=== PATIENT | male | born 1945 | race Caucasian/White ===

== ENCOUNTER 2019-12-11 11:18 | Outpatient (CLI) | payer MEDICARE, SELFPAY ==
--- NOTE | ~2019-12-11 | XR_ITS ---
EXAMINATION: XR hip LT min 2V DATE: 12/11/2019 11:51 INDICATION: Left hip pain. TECHNIQUE: 3 views of left hip were obtained. COMPARISON: None. FINDINGS: Bone alignment is normal. No fracture. There is mild left hip osteoarthritis. IMPRESSION: 1. Mild left hip osteoarthritis. Reviewed, dictated and finalized at location A.
--- NOTE | ~2019-12-11 | XR_ITS ---
EXAMINATION: XR lumbar spine 2-3V DATE: 12/11/2019 11:51 INDICATION: Low back pain TECHNIQUE: Anteroposterior and lateral views of the lumbar spine, and cone-down lateral view of the l umbosacral junction were obtained. COMPARISON: None. FINDINGS: There is no fracture. The vertebral body heights and alignment are normal. There is moderat e loss of intervertebral disc space height at L5-S1 and mild loss of disc space height throughout the remainder of the lumbar spine. Degenerative osteophytes project from the anterior endplates of multi ple vertebral bodies. Mild facet osteoarthritis is noted in the lower lumbar spine. The bowel gas pat tern is normal. IMPRESSION: 1. Mild lumbar spondylosis without acute findings. Reviewed, dictated and finalized at location B.
== END 2019-12-11 11:19 | disposition home or self-care (01) ==
LOC: CHSIMG 11:24
PROVIDERS: PCP Internal Medicine; Visit Provider Internal Medicine
DX: M54.5 Low back pain (principal); M25.552 Pain in left hip
CPT/HCPCS: 72100; 73502

== ENCOUNTER 2019-12-31 14:31 | Outpatient (RCR) | payer MEDICARE, SELFPAY ==
--- NOTE | 2019-12-31 14:23 | PTOPEVAL ---
Thank you for referring Armani Brar to [facility].? The patient is scheduled to be seen for therapy? ____x/week for ___ weeks. Please review, sign, date and return this plan of care ALANNA. I agree with and certify that the following plan of care is medically necessary. Referring Physician Date Admitting Provider: Attending Provider: Taco Christian MD Referring Provider: *PT Outpatient Evaluation Start: 12/31/19 13:09 Freq: Status: Active Protocol: Document 12/31/19 13:09 JI (Rec: 12/31/19 13:53 JI [id number]) Therapy Assessment Status Assessment Status Assessment Status Evaluation Evaluation Information Problem Diagnosis low back/hip pain Onset 08/13/19 Additional Evaluation Detail Oswestry=14% disability Subjective Information Pt. reports that he developed Query Text:As Reported By Patient/ left sided low back pain Family around August. He states that pain is not intense, but notes alot of stiffness. He has had xray which revealed degenrative arthritis. He states that bending over for long periods will increase his pain. He notes difficulty with household activities, such as pulling weeds. he reports that his goal is to reduce his pain. Prior Level of Function Activity Level (Last 3 Months) Occupation retired Hand Dominance Right Activity of Daily Living Ability Independent Indoor/Home Mobility Independent Community Mobility Independent Stairs Ability Independent Functional Cognition (Planning, Shopping Independent , Taking Medications) Cooking Yes Cleaning Yes Laundry Yes Shopping Yes Driving Yes Pain Assessment Pain Scale Pain Scale Used Numeric (1 - 10) Self Report Pain Assessment Left Lower Back Reported Pain Level 2 Pain Description Aching Lowest Pain Intensity 1 Greatest Pain Intensity 5 Pain Score Pain Score 2: Self Report Lower Extremity Muscle Strength Testing General Lower Extremity Strength Gross Lower Extremity Strength bilateral hip flexion 5/5, right hip abduction 4/5, left hip abduction 3+/5, right hip extension 4/5, left hip
--- NOTE | 2020-01-28 14:08 | PTOPEVAL ---
Thank you for referring Armani Brar to [facility].? The patient is scheduled to be seen for therapy? __1__x/week for _3__ weeks. Please review, sign, date and return this plan of care ALANNA. I agree with and certify that the following plan of care is medically necessary. Referring Physician Date Admitting Provider: Attending Provider: Taco Christian MD Referring Provider: *PT Outpatient Evaluation Start: 12/31/19 13:09 Freq: Status: Active Protocol: Document 01/28/20 13:24 JI (Rec: 01/28/20 14:07 JI [id number]) Therapy Assessment Status Assessment Status Assessment Status Discharge Evaluation Information Problem Subjective Information Pt. reports little change in Query Text:As Reported By Patient/ his pain levels. He states Family that he notes improvement after exercise, but pain will return once he participates in any vigorous activities such as golf. He reports that his exercise levels remain decreased at home and states that he still wants to return to the gym. Pt. reports he would like to continue to address strength Pain Assessment Pain Scale Pain Scale Used Numeric (1 - 10) Self Report Pain Assessment Left Lower Back Reported Pain Level 2 Greatest Pain Intensity 4 Pain Aggravating Factors Exercise/Activity,Weight Bearing/Standing Pain Score Pain Score 2: Self Report Lower Extremity Muscle Strength Testing General Lower Extremity Strength Gross Lower Extremity Strength right hip abducdtion 4/5 left hip abduction 4-/5 right hip extension 4+/5 left hip extension 4/5 Muscle Length Testing Muscle Length Testing Piriformis w/Hip Flexion >90 Degrees (R) Mild Tightness,(L) Moderate Tightness Left Hamstring Length 18 Query Text:(90 - 90 Position) Right Hamstring Length 15 Query Text:(90 - 90 Position) Palpation Assessment Palpation Palpation Continue to note tenderness to palpation in the area of the left lumbar paraspinals General Exercise General Exercises Exercise Description -sit ups x 30 Query Text:Record Sets, Reps, -oblique sit ups x 10 Resistance, and Position -dying bug x 2 minutes with 5 second holds -bridge x 2 minutes with 10
== END 2020-02-12 10:30 | disposition home or self-care (01) ==
LOC: CHSPT 14:31
PROVIDERS: PCP Internal Medicine; Visit Provider Internal Medicine
DX: M54.5 Low back pain (principal); M25.552 Pain in left hip
CPT/HCPCS: 97014; 97035; 97110; 97140; 97161; 97542; G0283

== ENCOUNTER 2020-04-09 12:37 | Outpatient (CLI) | payer MEDICARE, SELFPAY ==
[2020-04-09 13:35] LABS: SARS-CoV-2 Ag Positive (Negative)
== END 2020-04-09 12:38 | disposition home or self-care (01) ==
LOC: CHSLAB 12:39
PROVIDERS: PCP Internal Medicine; Visit Provider Internal Medicine
DX: U07.1 COVID-19 (principal)
CPT/HCPCS: 87426

== ENCOUNTER 2020-04-20 10:46 | Outpatient (CLI) | payer MEDICARE, SELFPAY ==
--- NOTE | ~2020-04-20 | XR_ITS ---
EXAMINATION: XR chest 2V DATE: 04/20/2020 11:06 INDICATION: Shortness of breath and cough. COVID-19 positive. TECHNIQUE: Frontal and lateral views of the chest were obtained on 3 radiographs. COMPARISON: Chest 2 views 07/03/2018 FINDINGS: There are airspace opacities in right mid and lower lung zones. There is mild scarring at t he lung apices. No pleural effusion or pneumothorax. The heart size is normal. IMPRESSION: 1. Airspace opacities in right mid and lower lung zones, consistent with pneumonia. Reviewed, dictated and finalized at location B. RER WHARF IMPRESSION: 1. Airspace opacities in right mid and lower lung zones, consistent with pneumo lennox.
--- NOTE | ~2020-04-20 | CT_ITS ---
EXAMINATION: CTA chest PE protocol DATE: 04/20/2020 12:29 INDICATION: Dyspnea. COVID-19 pneumonia. TECHNIQUE: Computed tomography angiography (CTA) of the chest was performed with 100 mL Omnipaque-350 intravenous contrast timed to evaluate the pulmonary arteries. Coronal maximum intensity projection 3D-reconstructions were created by the technologist. Automated exposure control and iterative reconst ruction technique were employed. The dose-length product was 382.16 mGy-cm. COMPARISON: None. FINDINGS: There are patchy groundglass opacities in all lobes with a peripheral predominance. There a re airspace opacities with volume loss in the peripheral lower lobes. There is mild scarring at the l rj apices. No pleural effusion. The heart size is normal. There are coronary artery calcifications. No pericardial effusion. There are acute pulmonary emboli in the lower lobes and left upper lobe. The re are 9 mm cyst in left kidney. There are bridging endplate osteophytes at multiple levels in the sp ine, consistent with diffuse idiopathic skeletal hyperostosis (DISH). IMPRESSION: 1. Bilateral acute pulmonary emboli. 2. Diffuse lung disease, consistent with COVID-19 pneumonia. Reviewed, dictated and finalized at location B. ITY PROSPECTING OBSERVER
[2020-04-20 11:05] LABS: Basophils Absolute Auto 0.01 K/mm3 (0.00-0.10); Basophils Percent Auto 0.1 % (0.0-1.0); Eosinophils Absolute Auto 0.07 K/mm3 (0.02-0.50); Eosinophils Percent Auto 0.9 % (1.0-6.0); Hematocrit 40.8 % (37.0-46.0); Hemoglobin 13.6 g/dL (12.4-15.3); Immature Granulocyte Absolute 0.03 K/mm3 (0.00-0.00); Immature Granulocyte Percent A 0.4 % (0.0-0.0); Lymphocytes Absolute Auto 1.58 K/mm3 (1.10-4.50); Lymphocytes Percent Auto 19.6 % (18.0-42.0); Mean Corpuscular HGB Conc 33.3 g/dL (32.0-36.0); Mean Corpuscular Hemoglobin 30.5 pg (27.0-31.0); Mean Corpuscular Volume 91.5 fL (78.0-102.0); Mean Platelet Volume 9.5 fl (8.7-11.0); Monocytes Absolute Auto 0.94 K/mm3 (0.10-0.90); Monocytes Percent Auto 11.7 % (2.0-11.0); Neutrophils Absolute Auto 5.4 K/mm3 (1.7-7.2); Neutrophils Percent Auto 67.3 % (50.0-70.0); Platelet Count Result 219 K/mm3 (150-420); Red Blood Count 4.46 M/mm3 (4.70-6.10); White Blood Count 8.1 K/mm3 (4.8-10.8)
[2020-04-20 11:24] LABS: D Dimer 2.47 mg/L (0.19-0.50)
[2020-04-20 12:02] LABS: Estimated Glomerular Filt Rate > 60
== END 2020-04-20 10:47 | disposition home or self-care (01) ==
PROVIDERS: PCP Internal Medicine; Visit Provider Internal Medicine
DX: R06.00 Dyspnea, unspecified (principal); R79.1 Abnormal coagulation profile; U07.1 COVID-19
CPT/HCPCS: 36415; 71046; 71275; 85025; 85380; Q9965; Q9967

== ENCOUNTER 2020-07-23 10:03 | Outpatient (CLI) | payer MEDICARE, SELFPAY ==
--- NOTE | ~2020-07-23 | CT_ITS ---
EXAMINATION: CTA chest PE protocol DATE: 07/23/2020 11:13 INDICATION: Pulmonary embolism TECHNIQUE: Computed tomography angiography (CTA) of the chest was performed with 100 mL Omnipaque-350 intravenous contrast timed to evaluate the pulmonary arteries. Coronal maximum intensity projection 3D-reconstructions were created by the technologist. The dose-length product (DLP) was 476.09 mGy-cm. Automated exposure control and iterative reconstruction technique were employed. COMPARISON: 04/20/2020 FINDINGS: The pulmonary arteries are well-opacified. The previously described pulmonary emboli in the lower lobes have significantly decreased in size. A small amount of residual clot is seen which demo nstrates an eccentric configuration, consistent with chronic embolism. The previously described left upper lobe pulmonary embolus is no longer seen. There are no acute pulmonary emboli. The previously d escribed patchy groundglass opacities have nearly completely resolved. There is a focal area of atele ctasis in the right upper lobe. No pleural effusion or pneumothorax is identified. No pathologically enlarged thoracic lymph nodes are identified. The heart size is normal. There are bridging osteophyte s at multiple levels in the spine, consistent with diffuse idiopathic skeletal hyperostosis (DISH). A 9 mm cyst is again noted in the left kidney upper pole. IMPRESSION: 1. Resolving pulmonary emboli in the lower lobes, now with a chronic configuration. No acute pulmonar y embolism identified. 2. Near complete resolution of previously described groundglass opacities, consistent with resolving COVID 19 pneumonia. Reviewed, dictated and finalized at location A. CTOR BANKING IMPRESSION: 1. Resolving pulmonary emboli in the lower lobes, now with a chronic configurat ion. No acute pulmonary embolism identified. 2. Near complete resolution of previously described groundglass opacities, cons istent with resolving COVID 19 pneumonia.
[2020-07-23 10:52] LABS: Estimated Glomerular Filt Rate > 60
== END 2020-07-23 10:04 | disposition home or self-care (01) ==
LOC: CHSIMG 10:05
PROVIDERS: PCP Internal Medicine; Visit Provider Internal Medicine
DX: I26.99 Other pulmonary embolism without acute cor pulmonale (principal); Z51.89 Encounter for other specified aftercare
CPT/HCPCS: 71275; Q9967

== ENCOUNTER 2020-10-08 13:06 | Outpatient (CLI) | payer MEDICARE, SELFPAY ==
[2020-10-08 13:57] LABS: Basophils Absolute Auto 0.02 K/mm3 (0.00-0.10); Basophils Percent Auto 0.3 % (0.0-1.0); Eosinophils Absolute Auto 0.15 K/mm3 (0.02-0.50); Eosinophils Percent Auto 2.5 % (1.0-6.0); Hematocrit 40.5 % (37.0-46.0); Hemoglobin 13.7 g/dL (12.4-15.3); Immature Granulocyte Absolute 0.01 K/mm3 (0.00-0.00); Immature Granulocyte Percent A 0.2 % (0.0-0.0); Lymphocytes Absolute Auto 2.32 K/mm3 (1.10-4.50); Lymphocytes Percent Auto 38.3 % (18.0-42.0); Mean Corpuscular HGB Conc 33.8 g/dL (32.0-36.0); Mean Corpuscular Hemoglobin 30.1 pg (27.0-31.0); Mean Platelet Volume 10.1 fl (8.7-11.0); Monocytes Absolute Auto 0.68 K/mm3 (0.10-0.90); Monocytes Percent Auto 11.2 % (2.0-11.0); Neutrophils Absolute Auto 2.9 K/mm3 (1.7-7.2); Neutrophils Percent Auto 47.5 % (50.0-70.0); Platelet Count Result 185 K/mm3 (150-420); Red Blood Count 4.55 M/mm3 (4.70-6.10); Red Cell Distribution Width 12.7 % (11.6-14.4); White Blood Count 6.1 K/mm3 (4.8-10.8)
[2020-10-08 14:05] LABS: Hemoglobin A1C 5.6 % (<5.7)
[2020-10-08 15:02] LABS: Alanine Aminotransferase 53 U/L (16-63); Albumin Level 3.6 g/dL (3.4-5.0); Alkaline Phosphatase 94 U/L (46-116); Anion Gap 8 mmol/L (8-16); Aspartate Amino Transferase 46 U/L (15-37); Bilirubin,Total 0.4 mg/dL (0.00-1.00); Blood Urea Nitrogen 11 mg/dL (7-18); Calcium 8.9 mg/dL (8.5-10.1); Carbon Dioxide 27 mmol/L (21-32); Chloride 106 mmol/L (98-108); Cholesterol 177 mg/dL (0-200); Creatine Kinase 161 U/L (39-308); Estimated Glomerular Filt Rate > 60; Glucose 123 mg/dL (70-99); HDL Direct 50 mg/dL (40-60); LDL Cholesterol Calculated 106 mg/dL (<130); Osmolality Calculated 292 mOsm/kg (285-295); Potassium 4.5 mmol/L (3.5-5.1); Sodium 141 mmol/L (136-145); Total Protein 6.7 g/dL (6.4-8.2); Triglycerides 103 mg/dL (0-150)
[2020-10-08 17:28] LABS: Add Urine Microscopic? NO; Appearance Urine Clear (Clear); Bilirubin Urine Negative (Negative); Blood Urine Negative (Negative); Color Urine Yellow (Yellow); Glucose Urine UA Negative (Negative); Ketones Urine Negative (Negative); Leukocyte Esterase Ur Negative (Negative); Nitrate Urine Negative (Negative); Protein Urine Negative (Negative)
== END 2020-10-08 13:07 | disposition home or self-care (01) ==
LOC: CHSLAB 13:07
PROVIDERS: PCP Internal Medicine; Visit Provider Internal Medicine
DX: E78.2 Mixed hyperlipidemia (principal); I10 Essential (primary) hypertension; E11.9 Type 2 diabetes mellitus without complications; I26.94 Multiple subsegmental thrombotic pulmonary emboli without acute cor pulmonale
CPT/HCPCS: 36415; 80053; 80061; 81003; 82550; 83036; 85025

== ENCOUNTER 2020-10-22 13:28 | Outpatient (CLI) | payer MEDICARE, SELFPAY ==
--- NOTE | ~2020-10-22 | US_ITS ---
US breast RT limited DATE: 10/22/2020 13:52 INDICATION: Painful right breast nodule TECHNIQUE: Real-time imaging of the right breast soft tissues COMPARISON: None FINDINGS: No suspicious mass or shadowing, cyst or other significant sonographic finding is detected IMPRESSION: BI-RADS Category 1: Negative Reviewed, dictated and finalized at Location A. Reviewed, dictated and finalized at location A.
== END 2020-10-22 13:29 | disposition home or self-care (01) ==
LOC: CHSIMG 13:31
PROVIDERS: PCP Internal Medicine; Visit Provider Internal Medicine
DX: N63.10 Unspecified lump in the right breast, unspecified quadrant (principal); N64.4 Mastodynia
CPT/HCPCS: 76642

== ENCOUNTER 2020-11-19 11:17 | Outpatient (CLI) | payer MEDICARE, SELFPAY ==
--- NOTE | 2020-12-13 16:23 | WPDHOLTEREM ---
Holter/Event Monitor Holter/Event Monitor Date of procedure: 11/19/20 Holter/Event Procedure: Event Monitor Indications: Stroke Conclusion: 1. 20 days event monitor between 11/19/20-12/10/20. There are 26 available transmissions for analysis. 2. Predominant rhythm is sinus rhythm. HR range 50-174 bpm; average HR 83 bpm. 3. There are occasional premature supraventricular complexes with total burden of 1%. There is 1 episode of atrial tachycardia at 174 bpm lasting 8 beats on 11/23/20 at 11:59. 4. There are occasional premature ventricular complexes with total burden of 2%. No ventricular tachycardia. 5. No significant pauses greater than 2 seconds. 6. Patient reports 3 episodes of symptoms of symptoms other than listed which demonstrate sinus rhythm, HR range 65-86 bpm with one episode having a PVC and PAC.
== END 2020-11-19 11:18 | disposition home or self-care (01) ==
LOC: CHSCARD 11:20
PROVIDERS: PCP Internal Medicine
DX: I63.9 Cerebral infarction, unspecified (principal)
CPT/HCPCS: 99199

== ENCOUNTER 2020-11-22 09:58 | Outpatient (RCR) | payer MEDICARE, SELFPAY ==
--- NOTE | 2020-11-22 12:01 | OTOPEVAL ---
Thank you for referring Armani Brar to [facility].? The patient is scheduled to be seen for therapy? ____x/week for ___ weeks. Please review, sign, date and return this plan of care ALANNA. I agree with and certify that the following plan of care is medically necessary. Referring Physician Date Admitting Provider: Attending Provider: panda finnegan Referring Provider: *OT Outpatient Evaluation Start: 11/22/20 07:28 Freq: Status: Active Protocol: Document 11/22/20 10:00 [facility] (Rec: 11/22/20 10:58 [facility] [id number]) Therapy Assessment Status Assessment Status Assessment Status Evaluation Outpatient Past Medical History Neurological History Hx Cerebrovascular Accident (CVA) Yes: 11/15/20 Cardiovascular History Hx Coronary Stent Yes: 2014 Evaluation Information Problem Diagnosis R UE weakness, decreased coordination Onset 11/15/20 Cause CVA Subjective Information BP taken at beginning of Query Text:As Reported By Patient/ session: 135/72, heart rate: Family 84 , BP mid way through session: 135/73, heart rate: 90 Patient reports that he has a heart monitor on that he has had since Sunday. Patient arrives to OT evaluation and reports the following: Patient reports that he had a mini- stroke (TIA) on 11/15/20. He states that he has been edgy and anxious about another one occuring and is feeling weak. He notes that R UE weakness continues to improve however initially his R arm was floppy. Patient states that initially his vision did not seem to be right but states that today its seem normal. Washing his hair, shaving, and combing his hair have been more difficult as his R hand just doesn't work like it used to. Prior Level of Function Activity Level (Last 3 Months) Occupation retired Hand Dominance Ambidextrous Activity of Daily Living Ability Independent Indoor/Home Mobility Independent Community Mobility Independent Stairs Ability Independent
--- NOTE | 2020-12-21 16:55 | PCOTNOTE ---
OT contact patient and left message to schedule follow up OT apt however patient has not returned call. Patient seen for OT evaluation only. MS
== END 2020-11-22 11:00 | disposition home or self-care (01) ==
LOC: CHSOT 09:58
PROVIDERS: PCP Internal Medicine
DX: I69.398 Other sequelae of cerebral infarction (principal)
CPT/HCPCS: 97110; 97165; 97530

== ENCOUNTER 2021-02-01 09:11 | Outpatient (CLI) | payer MEDICARE, SELFPAY ==
--- NOTE | ~2021-02-01 | CT_ITS ---
EXAMINATION: CTA chest PE protocol EXAM DATE: 02/01/2021 09:56 INDICATION: Pulmonary Embolism follow-up. TECHNIQUE: Spiral CTA of the chest (pulmonary arteries) was performed with 100 cc Omnipaque 350 intr avenous contrast injection. Images were acquired during the pulmonary arterial phase. Coronal maxi mum intensity projection 3D-reconstructions were created by the technologist on dedicated workstation . Axial, coronal and sagittal reformatted images were reviewed. The dose-length product (DLP) for t his examination was 381.92 mGy-cm. The exposure was tailored according to patient size (auto mA exp osure control), and iterative reconstruction (ASIR) was used as additional dose reduction technique. Comparison is made to prior examination from 07/23/2020. FINDINGS: Pulmonary arteries are well opacified and without intraluminal filling defects, resolution of previously seen small residual pulmonary emboli. No thoracic aortic dissection. The lungs are c lear. There are no pleural or pericardial effusions. Tracheobronchial tree is patent. There is no mediastinal, hilar or axillary lymphadenopathy. There is no pneumothorax. Mild cardiomegaly. No evidence of coronary arterial calcification. Upper abdomen is unremarkable. There is thoracic s pondylosis without osteoblastic or osteolytic lesions identified. IMPRESSION: 1. Resolution of previously seen pulmonary emboli. 2. Mild cardiomegaly. Reviewed, dictated and finalized at location B.
[2021-02-01 09:38] LABS: Estimated Glomerular Filt Rate > 60
== END 2021-02-01 09:12 | disposition home or self-care (01) ==
PROVIDERS: PCP Internal Medicine; Visit Provider Internal Medicine
DX: I26.99 Other pulmonary embolism without acute cor pulmonale (principal); Z51.89 Encounter for other specified aftercare; R91.1 Solitary pulmonary nodule
CPT/HCPCS: 71275; Q9967

== ENCOUNTER 2021-06-09 10:06 | Observation (INO) | payer MEDICARE, SELFPAY ==
--- NOTE | ~2021-06-09 | XR_ITS ---
EXAMINATION: XR chest 1V portable 06/09/2021 11:16 INDICATION: Chest pain PROCEDURE: AP portable chest COMPARISON: Comparison to multiple prior studies sequentially, with oldest reviewed study dated 12/23. FINDINGS: The lungs are clear. The cardiomediastinal silhouette is within normal limits. There are no pleural effusions. There is no pneumothorax suspected. IMPRESSION: 1: NO ACUTE CARDIOPULMONARY DISEASE. Reviewed, dictated and finalized at location B. RACTOR FIELD HAULING
--- NOTE | ~2021-06-09 | CT_ITS ---
EXAMINATION: CT abdomen pelvis wo con DATE: 06/09/2021 12:53 INDICATION: Left upper quadrant abdominal pain. TECHNIQUE: Computed tomography (CT) of the abdomen and pelvis was performed without intravenous contr ast. Automated exposure control and iterative reconstruction technique were employed. The dose-length product was 756.90 mGy-cm. COMPARISON: CT abdomen and pelvis 02/22/2009, chest CT 02/01/21 FINDINGS: The visualized portions of the lung bases demonstrate peripheral reticular and mild groundg lass opacities with improvement from 02/01/2021, consistent with atelectasis versus chronic lung disea se. The heart size is normal. No pericardial effusion. The liver, gallbladder, spleen, pancreas, adre nal glands, and kidneys are normal. There is no urolithiasis. There is a moderate volume of stool in the colon with distention of the rectum. The appendix is not visualized. There is a left inguinal her lennox containing fat. There are no pathologically enlarged lymph nodes. There is no free intraperitonea l fluid. There is an umbilical hernia containing fat. There is severe lower lumbar spondylosis. IMPRESSION: 1. Moderate volume of stool in the colon with distention of the rectum. 2. Umbilical hernia and left internal hernia containing fat. Reviewed, dictated and finalized at location A. NCE ADVISOR
[2021-06-09 10:06] VITALS: BP 166/87; PULSE 93; RESP 18; TEMP 36.7; O2SAT 99
--- NOTE | 2021-06-09 10:25 | ECG_ITS ---
Measurements Intervals [place] Rate: 92 P: 68 UT: 180 QRS: 29 QRSD: 105 T: 73 QT: 379 QTc: 470 Interpretive Statements SINUS RHYTHM ATRIAL AND VENTRICULAR PREMATURE COMPLEXES INCOMPLETE RIGHT BUNDLE BRANCH BLOCK CANNOT RULE OUT SEPTAL INFARCT, AGE INDETERMINATE BASELINE WANDER- V1-V3 ABNORMAL ECG Electronically Signed On 06-09-2021 11:08:09 TAPPER HELPER by Carlos Iqbal D.O.
[2021-06-09] MEDS: NITROGLYCERIN SL 0.4 MG TABLET SUBLINGUAL (10:30)
--- NOTE | 2021-06-09 10:34 | ED.CHESTPAIN ---
HPI - Chest Pain General Chief Complaint: Chest Pain Stated Complaint: HEART ISSUES Time Seen by Provider: 06/09/21 10:34 Source: patient and family Mode of arrival: ambulatory Limitations: no limitations History of Present Illness HPI narrative: This is a 76-year-old gentleman with a history of coronary artery disease with 1 stent placed in 2014 with a history of TIA is currently on Plavix and patient had an episode of chest pressure with epigastric discomfort that started on Sunday after he was chopping wood, and subsequently today earlier this morning while using his rhit patient had some discomfort in his chest, there is no diaphoresis no shortness of breath no nausea vomiting. Otherwise there is no fever chills, no abdominal pain no flank pain no dysuria. Patient did take a dose of aspirin prior to arrival along with a dose of nitroglycerin, his pain level in his chest he described about 9/10 and with the initial nitro it reduced to 7/10 and patient received dose of sublingual nitroglycerin while in the ER and his pain level is down to 2/10. MD complaint: chest pain and chest heaviness Pertinent past history: coronary artery disease Onset (ago): day(s) Timing of current episode: episodic Prior episodes: Yes Onset: during rest and during exertion Pain location: substernal and epigastric Pain radiation: none Severity: moderate Related Data Home Medications Medication Instructions Recorded Confirmed alprazolam 1 mg PO HS 06/09/21 06/09/21 clopidogrel 75 mg PO DAILY 06/09/21 06/09/21 evolocumab [Repatha SureClick] 140 mg SUBCUT DAILY 06/09/21 06/09/21 mirtazapine 15 mg PO DAILY 06/09/21 06/09/21 pantoprazole 40 mg PO DAILY 06/09/21 06/09/21 sucralfate 1 g PO DAILY 06/09/21 06/09/21 temazepam 15 mg PO DAILY 06/09/21 06/09/21 terbinafine HCl 250 mg PO DAILY 06/09/21 06/09/21 Review of Systems Review of Systems: All systems reviewed & are unremarkable except as noted in HPI and below PMFSH Past Medical History Medical History CAD (coronary artery disease) TIA (transient ischemic attack) Exam Const: General: cooperative, healthy appearing, comfortable, no acute distress, well developed, alert, awake and Physically active HENMT: Head: normal to inspection Ears: hearing grossly normal bilaterally General nose exam: Normal external nose present Face and sinus: normal facial exam Mouth: Yes Normal oral and palatal mucosa present Eyes: General: appearance normal, both eyes and all related structures EOM: EOMs intact bilaterally Neck: Neck: normal visual inspection, full ROM, no lymphadenopathy and no meningeal signs Chest: Chest palpation & inspection: normal inspection of the chest and normal palpation of entire chest wall Resp: Effort & Inspection: normal respiratory effort and able to speak in complete sentences Auscultation: clear to auscultation bilaterally Cardio: Jugular venous distension: no JVD Palpation: normal PMI Rate: regular rate Rhythm: regular rhythm GI: Inspection: normal to inspection Auscultation: normal bowel sounds Other: epigastric tenderness with palpation : General: Yes no CVA tenderness Back/Spine/Pelvis: Back: no CVA tenderness Skin: General skin exam: normal color and no rashes or lesions noted Neuro: General: oriented to person, oriented to place, oriented to time, patient oriented x3, gait normal, tone normal and moves all extremities Extrem: General: normal to inspection, full ROM and capillary refill normal Psych: Appearance: grossly normal and well kempt Mental Status: mental status grossly normal Course Course Emergency Course: patient having chest pressure after using a rhit, has a history of CAD patient labs were reviewed with patient and his daughter and troponins were mildly elevated at 65, patient was given nitroglycerin sublingual and pain level improved down to 2/10 initially from a 11/20. Ian
[2021-06-09 10:35] VITALS: BP 127/67; PULSE 84
[2021-06-09 10:44] LABS: Basophils Absolute Auto 0.03 K/mm3 (0.00-0.10); Basophils Percent Auto 0.5 % (0.0-1.0); Eosinophils Absolute Auto 0.34 K/mm3 (0.02-0.50); Eosinophils Percent Auto 5.9 % (1.0-6.0); Hematocrit 39.2 % (37.0-46.0); Hemoglobin 13.4 g/dL (12.4-15.3); Immature Granulocyte Absolute 0.02 K/mm3 (0.00-0.00); Immature Granulocyte Percent A 0.3 % (0.0-0.0); Lymphocytes Absolute Auto 2.02 K/mm3 (1.10-4.50); Lymphocytes Percent Auto 34.9 % (18.0-42.0); Mean Corpuscular HGB Conc 34.2 g/dL (32.0-36.0); Mean Corpuscular Volume 90.7 fL (78.0-102.0); Mean Platelet Volume 9.4 fl (8.7-11.0); Monocytes Absolute Auto 0.81 K/mm3 (0.10-0.90); Neutrophils Absolute Auto 2.6 K/mm3 (1.7-7.2); Neutrophils Percent Auto 44.4 % (50.0-70.0); Platelet Count Result 171 K/mm3 (150-420); Red Blood Count 4.32 M/mm3 (4.70-6.10); White Blood Count 5.8 K/mm3 (4.8-10.8)
[2021-06-09 10:59] LABS: D Dimer 0.22 mg/L (0.19-0.50); Partial Thromboplastin Time 24.8 SEC (23.90-30.70); Prothrombin Time 10.9 Seconds (9.50-12.10)
[2021-06-09 11:05] LABS: Alanine Aminotransferase 31 U/L (16-63); Albumin Level 3.3 g/dL (3.4-5.0); Alkaline Phosphatase 80 U/L (46-116); Anion Gap 8 mmol/L (8-16); Aspartate Amino Transferase 20 U/L (15-37); Bilirubin,Total 0.3 mg/dL (0.00-1.00); Blood Urea Nitrogen 14 mg/dL (7-18); Calcium 8.7 mg/dL (8.5-10.1); Carbon Dioxide 26 mmol/L (21-32); Chloride 106 mmol/L (98-108); Estimated Glomerular Filt Rate > 60; Glucose 127 mg/dL (70-99); Lipase 99 U/L (73-393); NT Pro B Type Natriuretic Pept 106 pg/mL (0-450); Osmolality Calculated 292 mOsm/kg (285-295); Potassium 3.5 mmol/L (3.5-5.1); Sodium 140 mmol/L (136-145); Total Protein 6.7 g/dL (6.4-8.2)
[2021-06-09 11:08] LABS: Troponin I 65.4 ng/L (0.00-60.4)
[2021-06-09 11:19] LABS: SARS-CoV-2 RNA PCR Negative (Negative)
--- NOTE | 2021-06-09 11:19 | PC.NURSE ---
call to care coordination. spoke with cosmo juarez regarding admission
[2021-06-09 11:29] VITALS: BP 130/75; PULSE 80; RESP 20; TEMP 36.2; O2SAT 97
[2021-06-09 12:30] VITALS: BP 138/80; PULSE 82; RESP 20; TEMP 36.4; O2SAT 96
--- NOTE | 2021-06-09 12:31 | ADMGEN ---
This patient, Armani Brar, was admitted to 2nd Floor Room 226-2. patient her with c/o of chest pains. tele applied. sr on monitor. Patient/family oriented to hospital policies and general routines including ID bracelet, bed and alarms, visiting hours, pain management, procedures, bathroom and other care routines, personal items, smoking policy, room service/diet, and visiting hours. Information on how to activate the Rapid Response Team has been discussed. Patient/Family are encouraged to report perceived risks to care and to ask questions if they do not understand what they are told or what they should do. Pt denies sob but left arm there is achy feeling off and on. rates it maybe 05/15
[2021-06-09 12:40] VITALS: BMI 28.0
[2021-06-09 14:00] VITALS: BP 154/74; PULSE 84; RESP 20; TEMP 36.6; O2SAT 97
[2021-06-09 15:21] LABS: Troponin I 124.9 ng/L (0.00-60.4)
--- NOTE | 2021-06-09 16:19 | PC.NURSE ---
up in chair. watching tv. still cont to deny cp. trop level increased. erp aware and placing calls at this time to area hospitals for cardiac beds.
[2021-06-09] MEDS: SUCRALFATE 1 GM TABLET PO ×2 (16:36→20:19)
[2021-06-09] MEDS: ENOXAPARIN 100 MG/ML SYRINGE 86 MG SUB-Q (16:36)
[2021-06-09] MEDS: polyethylene glycoL 3350 17 GM POWD.PACK PO (16:36)
--- NOTE | 2021-06-09 16:36 | PC.NURSE ---
Daughter, Jovita Brar, updated on status and that attempts are being made to transfer patient.
--- NOTE | 2021-06-09 17:52 | PM.EVENT ---
Event Note Event Note Event Note: patient was admitted to the floor with some chest pain and rule out protocol his initial troponin was 65 patient currently chest pain free but his subsequent troponin bumped up to 128, talked to access line at [facility] in [place] talk to Cardiology and hospitalist which accepted for transfer. The patient currently is stable he is chest pain-free at 0/10 patient received a dose of Lovenox, aspirin, patient is currently on as aspirin and Plavix.
[2021-06-09 19:00] LABS: Troponin I 131.1 ng/L (0.00-60.4)
--- NOTE | 2021-06-09 19:01 | PC.NURSE ---
updated on current Troponin level of 131.1. No new orders.
[2021-06-09 20:00] VITALS: PULSE 73
--- NOTE | 2021-06-09 20:07 | PC.NURSE ---
[facility] did not have rig available for transfer. [facility] notified.
--- NOTE | 2021-06-09 20:10 | PC.NURSE ---
Patient's daughert, Jovita Brar, notified of transfer and room number 510 at [place].
[2021-06-09] MEDS: SENNA/DOCUSATE SODIUM TABLET 1 TAB PO (20:19)
[2021-06-09] MEDS: ALPRAZolam (*CRX) 0.5 MG TABLET 1 MG PO (20:19)
[2021-06-09] MEDS: MIRTAZAPINE 15 MG TABLET PO (20:19)
--- NOTE | 2021-06-09 20:30 | PC.NURSE ---
Patient was transferred to [facility] for cardiology follow-up. Patient's vitals were within normal limits, with the exception of BP of 158/79. Patient has a history of high blood pressure. Patient's telemetry strip showed Normal Sinus Rhythm. Patient was alert and oriented, and medically stable for transport when [facility] picked him up. Report was given to nurse Ifrah at [facility] prior to 1999.
--- NOTE | 2021-06-13 15:34 | PM.DS ---
DS: Admitting Diagnosis Discharge Date 06/09/21 this is a short-stay summary patient was admitted with a mildly elevated troponin of 65 initially had chest pain with no EKG changes, patient has a history of CAD with 1 stent placed, presented with a 3 day history of off and on chest pain and epigastric discomfort and was admitted to the floor to rule out protocol wound closure troponin was 65, and his troponin levels increased to 128 and subsequently to 139. Admitting Diagnosis chest pain DS: Discharge Diagnosis Discharge Diagnosis (1) Non-STEMI (non-ST elevated myocardial infarction): Code(s): I21.4 - Non-ST elevation (NSTEMI) myocardial infarction Status: Acute DS: Summary Hospital Course Hospital Course: patient was a rule out protocol for chest pain and his subsequent troponins elevated talk to Cardiology group at [facility] which accepted the patient for further evaluation. Time Spent with Patient Time attestation: Total time spent providing and/or coordinating discharge services: Exam Const: General: comfortable and no acute distress Limitations: no limitations HENMT: Ears: TM's normal bilaterally Eyes: General: appearance normal, both eyes and all related structures Neck: Neck: supple and no JVD Resp: Effort & Inspection: normal respiratory effort Auscultation: clear to auscultation bilaterally Cardio: Rate: regular rate Rhythm: regular rhythm GI: GI Palp: Yes Soft to palpation Percussion: Yes normal to percussion Skin: General skin exam: normal color Neuro: General: gait normal Motor exam (neuro): Normal motor muscle tone present throughout Extrem: General: normal to inspection and normal exam except as noted Psych: Mental Status: mental status grossly normal Affect: normal affect Discharge Plan Discharge Consulting providers: Carlos Iqbal ; Benja Hawkins ; Bakari Herring V. Discharging Clinician: Tayo Wilson Anticipated Discharge Date/Time: 06/09/21 19:47 Patient Disposition: Acute Care Hospital Diet: NPO Follow-up/Referrals: Taco Christian MD [Primary Care Provider] - Discharge Medications: Continued clopidogrel 75 mg tablet 75 mg PO DAILY RF: 0 alprazolam 1 mg tablet 0.5 mg PO Q6-8H PRN (Reason: Anxiety) RF: 0 sucralfate 1 gram tablet 1 g PO QID RF: 0 terbinafine HCl 250 mg tablet 250 mg PO DAILY RF: 0 temazepam 15 mg capsule 15 mg PO HS PRN (Reason: Sleep) RF: 0 pantoprazole 40 mg tablet,delayed release (DR/EC) 40 mg PO DAILY RF: 0 mirtazapine 15 mg tablet 15 mg PO HS RF: 0 Repatha SureClick 140 mg/mL pen injector 140 mg SUBCUT [id number] RF: 0 Date of admission: 06/09/21 11:26 Primary Care Provider: Taco Christian Admitting Provider: Tayo Wilson Attending physician on admission: Tayo Wilson Condition: Guarded Prognosis
== END 2021-06-09 20:00 | disposition short-term general hospital (02) ==
LOC: CHSED 11:32 → CHS2ND 11:33
PROVIDERS: Admitting Provider Emergency Medicine; Emergency Provider Emergency Medicine; PCP Internal Medicine; Visit Provider Emergency Medicine
DX: I21.4 Non-ST elevation (NSTEMI) myocardial infarction (principal); I25.118 Atherosclerotic heart disease of native coronary artery with other forms of angina pectoris; Z95.5 Presence of coronary angioplasty implant and graft; Z79.01 Long term (current) use of anticoagulants; Z20.822 Contact with and (suspected) exposure to COVID-19; Z86.73 Personal history of transient ischemic attack (TIA), and cerebral infarction without residual deficits
CPT/HCPCS: 36415; 71045; 74176; 80053; 83690; 83880; 84484; 85025; 85380; 85610; 85730; 93005; 96372; 99285; A9270; C9803; G0378; J1650; U0003; U0005

== ENCOUNTER 2021-08-01 11:42 | Outpatient (CLI) | payer MEDICARE, SELFPAY ==
--- NOTE | ~2021-08-01 | XR_ITS ---
EXAMINATION: XR chest 2V DATE: 08/01/2021 11:59 INDICATION: Cough, right lower lobe pneumonia TECHNIQUE: PA and lateral views of the chest are obtained. COMPARISON: 06/09/2021 FINDINGS: The lungs are free of acute opacities. There is no pleural effusion or pneumothorax. The ca rdiomediastinal silhouette is normal. There are bridging osteophytes at multiple levels in the spine, consistent with diffuse idiopathic skeletal hyperostosis (DISH). IMPRESSION: 1. No acute cardiopulmonary abnormality. Reviewed, dictated and finalized at location B.
== END 2021-08-01 11:43 | disposition home or self-care (01) ==
LOC: CHSIMG 11:44
PROVIDERS: PCP Internal Medicine; Visit Provider Internal Medicine
DX: R05.9 Cough, unspecified (principal)
CPT/HCPCS: 71046

== ENCOUNTER 2021-09-15 10:24 | Outpatient (CLI) | payer MEDICARE, SELFPAY | END 2021-09-15 10:25 | disposition home or self-care (01) | LOC: CHSIMG 10:25 | PROVIDERS: PCP Internal Medicine; Visit Provider Internal Medicine | DX: N64.4 Mastodynia (principal); Z53.20 Procedure and treatment not carried out because of patient's decision for unspecified reasons | CPT/HCPCS: 99199 ==

== ENCOUNTER 2022-07-12 08:40 | Outpatient (CLI) | payer MEDICARE, SELFPAY ==
[2022-07-12 08:57] LABS: Basophils Absolute Auto 0.05 K/mm3 (0.00-0.10); Basophils Percent Auto 0.8 % (0.0-1.0); Eosinophils Absolute Auto 0.49 K/mm3 (0.02-0.50); Hematocrit 41.1 % (37.0-46.0); Hemoglobin 13.8 g/dL (12.4-15.3); Immature Granulocyte Absolute 0.02 K/mm3 (0.00-0.00); Immature Granulocyte Percent A 0.3 % (0.0-0.0); Lymphocytes Absolute Auto 2.51 K/mm3 (1.10-4.50); Lymphocytes Percent Auto 41.1 % (18.0-42.0); Mean Corpuscular HGB Conc 33.6 g/dL (32.0-36.0); Mean Corpuscular Volume 92.4 fL (78.0-102.0); Mean Platelet Volume 9.8 fl (8.7-11.0); Monocytes Absolute Auto 0.88 K/mm3 (0.10-0.90); Monocytes Percent Auto 14.4 % (2.0-11.0); Neutrophils Absolute Auto 2.2 K/mm3 (1.7-7.2); Neutrophils Percent Auto 35.4 % (50.0-70.0); Platelet Count Result 178 K/mm3 (150-420); Red Blood Count 4.45 M/mm3 (4.70-6.10); Red Cell Distribution Width 12.4 % (11.6-14.4); White Blood Count 6.1 K/mm3 (4.8-10.8)
[2022-07-12 09:07] LABS: Appearance Urine Clear (Clear); Bilirubin Urine Negative (Negative); Blood Urine Negative (Negative); Color Urine Light Yellow (Yellow); Glucose Urine UA Negative (Negative); Ketones Urine Negative (Negative); Leukocyte Esterase Ur Negative (Negative); Nitrate Urine Negative (Negative); Protein Urine Negative (Negative); pH Urine 6.5 (5.0-8.0)
[2022-07-12 09:23] LABS: Add Urine Microscopic? YES; Bacteria Urine None seen /hpf; RBC Urine None seen /hpf (0-2); WBC Urine None seen /hpf (0-3)
[2022-07-12 09:26] LABS: Hemoglobin A1C 5.4 % (<5.7)
[2022-07-12 09:42] LABS: Alanine Aminotransferase 32 U/L (16-63); Albumin Level 3.6 g/dL (3.4-5.0); Alkaline Phosphatase 91 U/L (46-116); Anion Gap 6 mmol/L (8-16); Aspartate Amino Transferase 25 U/L (15-37); Bilirubin,Total 0.6 mg/dL (0.00-1.00); Blood Urea Nitrogen 19 mg/dL (7-18); Calcium 8.7 mg/dL (8.5-10.1); Carbon Dioxide 30 mmol/L (21-32); Chloride 109 mmol/L (98-108); Cholesterol 116 mg/dL (0-200); Creatine Kinase 283 U/L (39-308); Estimated Glomerular Filt Rate > 60; Free T3 3.27 pg/mL (2.18-3.98); Free T4 Free Thyroxine 1.01 ng/dL (0.76-1.46); Glucose 108 mg/dL (70-99); HDL Direct 62 mg/dL (40-60); LDL Cholesterol Calculated 43 mg/dL (<130); NT Pro B Type Natriuretic Pept 87 pg/mL (0-450); Osmolality Calculated 303 mOsm/kg (285-295); Potassium 4.6 mmol/L (3.5-5.1); Sodium 145 mmol/L (136-145); Thyroid Stimulating Hormone 1.12 uIU/mL (0.36-3.74); Total Protein 6.7 g/dL (6.4-8.2); Triglycerides 57 mg/dL (0-150)
== END 2022-07-12 08:41 | disposition home or self-care (01) ==
LOC: CHSLAB 08:43
PROVIDERS: PCP Internal Medicine; Visit Provider Internal Medicine
DX: E78.2 Mixed hyperlipidemia (principal); I10 Essential (primary) hypertension; R73.01 Impaired fasting glucose; I25.10 Atherosclerotic heart disease of native coronary artery without angina pectoris; R53.82 Chronic fatigue, unspecified; I50.9 Heart failure, unspecified
CPT/HCPCS: 36415; 80053; 80061; 81001; 82550; 83036; 83880; 84439; 84443; 84481; 85025

== ENCOUNTER 2023-02-15 09:23 | Outpatient (CLI) | payer MEDICARE, SELFPAY ==
[2023-02-15 09:45] LABS: Basophils Absolute Auto 0.06 K/mm3 (0.00-0.10); Basophils Percent Auto 0.9 % (0.0-1.0); Eosinophils Absolute Auto 0.34 K/mm3 (0.02-0.50); Eosinophils Percent Auto 5.3 % (1.0-6.0); Hematocrit 41.2 % (37.0-46.0); Immature Granulocyte Absolute 0.01 K/mm3 (0.00-0.00); Immature Granulocyte Percent A 0.2 % (0.0-0.0); Lymphocytes Absolute Auto 2.33 K/mm3 (1.10-4.50); Lymphocytes Percent Auto 36.3 % (18.0-42.0); Mean Corpuscular Volume 91.4 fL (78.0-102.0); Mean Platelet Volume 9.8 fl (8.7-11.0); Monocytes Absolute Auto 0.94 K/mm3 (0.10-0.90); Monocytes Percent Auto 14.7 % (2.0-11.0); Neutrophils Absolute Auto 2.7 K/mm3 (1.7-7.2); Neutrophils Percent Auto 42.6 % (50.0-70.0); Platelet Count Result 179 K/mm3 (150-420); Red Blood Count 4.51 M/mm3 (4.70-6.10); Red Cell Distribution Width 12.3 % (11.6-14.4); White Blood Count 6.4 K/mm3 (4.8-10.8)
[2023-02-15 09:47] LABS: Appearance Urine Clear (Clear); Bilirubin Urine Negative (Negative); Blood Urine Negative (Negative); Color Urine Yellow (Yellow); Glucose Urine UA Negative (Negative); Ketones Urine Negative (Negative); Leukocyte Esterase Ur Negative (Negative); Nitrate Urine Negative (Negative); Protein Urine Negative (Negative); Urobilinogen Urine 0.2 mg/dL (0.2-1.0)
[2023-02-15 09:48] LABS: Add Urine Microscopic? NO
[2023-02-15 10:22] LABS: Alanine Aminotransferase 38 U/L (16-63); Albumin Level 3.6 g/dL (3.4-5.0); Alkaline Phosphatase 87 U/L (46-116); Anion Gap 9 mmol/L (8-16); Aspartate Amino Transferase 31 U/L (15-37); Bilirubin,Total 0.6 mg/dL (0.00-1.00); Blood Urea Nitrogen 18 mg/dL (7-18); Calcium 9.3 mg/dL (8.5-10.1); Carbon Dioxide 26 mmol/L (21-32); Chloride 108 mmol/L (98-108); Cholesterol 128 mg/dL (0-200); Creatine Kinase 246 U/L (39-308); Estimated Glomerular Filt Rate > 60; Glucose 107 mg/dL (70-99); HDL Direct 63 mg/dL (40-60); LDL Cholesterol Calculated 51 mg/dL (<130); Osmolality Calculated 297 mOsm/kg (285-295); Potassium 4.4 mmol/L (3.5-5.1); Prostate Specific Antigen 0.4 ng/mL (< OR = 4.0); Sodium 143 mmol/L (136-145); Total Protein 6.5 g/dL (6.4-8.2); Triglycerides 70 mg/dL (0-150)
== END 2023-02-15 09:24 | disposition home or self-care (01) ==
LOC: CHSLAB 09:25
PROVIDERS: PCP Internal Medicine; Visit Provider Internal Medicine
DX: I10 Essential (primary) hypertension (principal); I25.10 Atherosclerotic heart disease of native coronary artery without angina pectoris; R53.82 Chronic fatigue, unspecified; E78.2 Mixed hyperlipidemia; Z12.5 Encounter for screening for malignant neoplasm of prostate
CPT/HCPCS: 36415; 80053; 80061; 81003; 82550; 84153; 85025; G0103

== ENCOUNTER 2023-03-08 13:42 | Outpatient (CLI) | payer MEDICARE, SELFPAY ==
--- NOTE | 2023-03-14 11:10 | WPDHOLTEREM ---
Holter/Event Monitor Holter/Event Monitor Date of procedure: 03/08/23 Holter/Event Procedure: Event Monitor Indications: Heart beat abnormalities Conclusion: 1. 5 days event monitor between 03/08/23-03/14/23. There are 5 available transmissions for analysis. 2. Predominant rhythm is sinus rhythm. HR range 59-138 bpm; average HR 85 bpm. 3. There are occasional premature supraventricular complexes with total burden of 1%. There are 657 episodes of atrial fibrillation with 15% burden; HR range 59-138 bpm; average 81 bpm. The longest episode lasts 1 hour adn 47 minutes. 4. There are intermittent premature ventricular complexes with total burden of 7%. No ventricular tachycardia. 5. No significant pauses greater than 2 seconds. 6. No symptoms available for correlation.
== END 2023-03-08 13:43 | disposition home or self-care (01) ==
LOC: CHSCARD 13:44
PROVIDERS: PCP Internal Medicine; Visit Provider Internal Medicine
DX: I49.9 Cardiac arrhythmia, unspecified (principal)
CPT/HCPCS: 93270

== ENCOUNTER 2023-10-29 11:07 | Outpatient (CLI) | payer MEDICARE, SELFPAY ==
--- NOTE | ~2023-10-29 | CT_ITS ---
EXAMINATION: CT brain wo con DATE: 10/29/2023 11:33 INDICATION: Head injury. TECHNIQUE: Computed tomography (CT) of the head was performed without intravenous contrast. The mA wa s adjusted according to patient size. Iterative reconstruction technique was employed. The dose-lengt h product was 681.00 mGy-cm. COMPARISON: None FINDINGS: There are scattered areas of low attenuation in the cerebral white matter, which is within normal limits for the patient's age. There is no intracranial hemorrhage, acute infarction, or abnor mal intracranial mass lesion. The ventricles are normal in size. There is mild mucosal thickening in the paranasal sinuses. There are likely changes of ocular lens replacement surgeries. The mastoid air cells are normal. There is left posterior scalp soft tissue swelling. IMPRESSION: 1. Normal aging brain. Reviewed, dictated and finalized at location E. IMPRESSION: 1. Normal aging brain.
== END 2023-10-29 11:08 | disposition home or self-care (01) ==
PROVIDERS: PCP Internal Medicine; Visit Provider Internal Medicine
DX: S09.90XA Unspecified injury of head, initial encounter (principal)
CPT/HCPCS: 70450

== ENCOUNTER 2023-12-20 14:41 | Outpatient (CLI) | payer MEDICARE, SELFPAY ==
[2023-12-20 14:56] LABS: Hematocrit 39.1 % (37.0-46.0); Hemoglobin 13.8 g/dL (12.4-15.3); Mean Corpuscular HGB Conc 35.3 g/dL (32-36); Mean Corpuscular Hemoglobin 31.4 pg (27.0-31.0); Mean Corpuscular Volume 89.1 fL (78.0-102.0); Mean Platelet Volume 9.4 fl (8.7-11.0); Platelet Count Result 175 K/mm3 (150-420); Red Blood Count 4.39 M/mm3 (4.70-6.10); Red Cell Distribution Width 12.3 % (11.6-14.4); White Blood Count 6.6 K/mm3 (4.8-10.8)
[2023-12-20 15:24] LABS: Alanine Aminotransferase 44 U/L (16-63); Albumin Level 3.6 g/dL (3.4-5.0); Alkaline Phosphatase 89 U/L (46-116); Anion Gap 7 mmol/L (4-12); Aspartate Amino Transferase 30 U/L (15-37); Bilirubin,Total 0.5 mg/dL (0.00-1.00); Blood Urea Nitrogen 15 mg/dL (7-18); Carbon Dioxide 29 mmol/L (21-32); Chloride 109 mmol/L (98-108); Creatine Kinase 205 U/L (39-308); Estimated Glomerular Filt Rate > 60; Free T4 Free Thyroxine 0.75 ng/dL (0.76-1.46); Glucose 85 mg/dL (70-99); NT Pro B Type Natriuretic Pept 76 pg/mL (0-450); Osmolality Calculated 299 mOsm/kg (285-295); Potassium 4.4 mmol/L (3.5-5.1); Sodium 145 mmol/L (136-145); Thyroid Stimulating Hormone 1.04 uIU/mL (0.36-3.74); Total Protein 7.1 g/dL (6.4-8.2); Troponin I 20.7 ng/L (0.00-60.4)
[2023-12-20 15:28] LABS: Calcium 8.9 mg/dL (8.5-10.1)
== END 2023-12-20 14:42 | disposition home or self-care (01) ==
LOC: CHSLAB 14:43
PROVIDERS: PCP Internal Medicine; Visit Provider Internal Medicine
DX: R07.9 Chest pain, unspecified (principal); I48.91 Unspecified atrial fibrillation; R06.00 Dyspnea, unspecified
CPT/HCPCS: 36415; 80053; 82550; 82553; 83880; 84439; 84443; 84481; 84484; 85027

== ENCOUNTER 2024-04-25 11:20 | Outpatient (CLI) | payer MEDICARE, SELFPAY ==
--- NOTE | ~2024-04-25 | XR_ITS ---
EXAMINATION: XR chest 2V 04/25/2024 11:32 INDICATION: Cough PROCEDURE: 2 view chest COMPARISON: Comparison to multiple prior studies sequentially, with oldest reviewed study dated 07/03. FINDINGS: The lungs are clear. The cardiomediastinal silhouette is within normal limits. There are no pleural effusions. There is no pneumothorax suspected. IMPRESSION: 1: NO ACUTE CARDIOPULMONARY DISEASE. Reviewed, dictated and finalized at location B. RMATION SYSTEMS ADMINISTRATOR
--- OUTSIDE RECORDS SUMMARY | 2024-04-25 12:39 | XMS_ITS | Continuity of Care Document ---
Author Organization [email or web address] [facility] Address [address] [place] [address] Phone Care Team Providers Care Collaborative Physician Name Role Phone Tiara OD, Caitlyn Unavailable Unavailable Allergies, Adverse Reactions, Alerts Substance Reaction Status Criticality No Known Allergies Active No Inform ation Medications Medication Instructions Dosage Effective Dates (start - stop) Status Comments Miebo (PF) 100 % eye drops instill 1 drop by ophthalmic route 4 times every day into affected eye(s) 1.00 drop - Active Eliquis 2.5 mg tablet take 1 tablet by oral route 2 times every day 2.5 MG - Active metoprolol succinate ER 25 mg tablet,extended release 24 hr take 1 tablet by oral route every day 25 MG - Active amlodipine 5 mg tablet take 1 tablet by oral route every day 5 MG - Active Flonase Allergy Relief 50 mcg/actuation nasal spray,suspension spray 1 - 2 spray by intranasal route every day in each nostril as needed 50-100 MCG - Active temazepam 30 mg capsule take 1 capsule b y oral route every day at bedtime as needed 30 MG - Active chlordiazepoxide 5 mg capsule take 1 capsule by oral route every day 5 MG - Active Procedures Procedure Date Refraction Office/outpatient Visit, Est No Charge Refraction No Charge Optomap Fundus Photos 024 Office/outpatient Visit, New Advance Directives Directive Yes / No Effective Date File Name No Information Encounters Encounter Description Practice Location Reason(s) For Visit Diagnoses Date Provider Providers Copied on Encounter Office/outpa tient Visit, [facility], [address], [place], [place], [address], tel:[phone] [place] Professional Follow up visit (chief complaint) Dry eye syndrome of bilateral lacrimal glands 4 Tiara OD Caitlyn. [address], [place], [place], [address], [place]. tel:[phone] Referring Provider: Caitlyn Melendez, [facility] [address], [place], [address] . tel:[phone] Office/outpa tient Visit, [facility], [address], [place], [place], [address], tel:[phone] [place] Professional Complete Exam (chief complaint) Dry eye syndrome of bilateral lacrimal glandsPseudoph tamera Jan-0 4 Tiara OD Caitlyn. [address], [place], [place], [address], [place]. tel:[phone] [facility], [address], [place], [place], [address], tel:[phone] [place] No Information 4 Tiara OD Caitlyn. [address], [place], [place], [address], [place]. tel:[phone] Family History Family Member Type Diagnosis Age At Onset No Information Payers Payer name Insurance type Covered libertarian ID Kelseya octavio(s) Re[employer] CI [id number] Social History Type Description Quantity Date Captured Comments Alcohol Use Details > 5 glasses weekly Caffeine Use Details 2 cups per day Tobacco Use Status Current non-smoker 24 Smoking Status Never smoker Non-Smoking Tobacco Use Details : No Details Available : No Details Available Sex Male Chief Complaint And Reason For Visit From encounter dated '02/04/2024 11:00'. Follow up visit (chief complaint). Description: The 78 year old patient presents for a 2 week follow up with repeat refraction. Patient states he is using the sample drop he got. Patient states he was having a hard time driving here in the rain and was bothered by glare. Reason For Referral Reason For Referral No Information Plan Of Treatment Date Type Action Status Appointment [facility] BOOKED History Of Present Illness Encounter Date Complaint History Of Prese nt Illness Follow up visit The 78 year old patient presents for a 2 week follow up with repeat refraction. Patient states he is using the sample drop he got. Patient states he was having a hard time driving here in the rain and was bothered by glare. Complete Exam The 78 year old patient presents for a complete exam ou. Patient is pseudo ou. Patient c/o decreased DV ou. Patient states he tried glasses before and he states they didn't help. Patient states the last three years the lights at night are bothersome. Functional Status Date Functional Assessmen t No Information Instructions Date Instruction Additional Infor mabel Impression/Plan Impression/Plan Assessments Type Assessment Date assessment Dry eye syndrome of bilateral la crimal glands Patient Care Teams Name Effective Dates (start - stop) Status Members No Information
== END 2024-04-25 11:21 | disposition home or self-care (01) ==
PROVIDERS: PCP Internal Medicine; Visit Provider Internal Medicine
DX: R05.9 Cough, unspecified (principal)
CPT/HCPCS: 71046

== ENCOUNTER 2024-10-30 15:27 | Outpatient (CLI) | payer MEDICARE, SELFPAY ==
--- NOTE | ~2024-10-30 | XR_ITS ---
EXAMINATION: XR chest 2V 10/30/2024 15:46 INDICATION: Patient on amiodarone. PROCEDURE: 2 view chest COMPARISON: Comparison to multiple prior studies sequentially, with oldest reviewed study dated 06/09. FINDINGS: The lungs are clear. The cardiomediastinal silhouette is within normal limits. There are no pleural effusions. There is no pneumothorax suspected. IMPRESSION: 1: NO ACUTE CARDIOPULMONARY DISEASE. Reviewed, dictated and finalized at location A.
--- OUTSIDE RECORDS SUMMARY | 2024-10-30 15:31 | XMS_ITS | Clinical Summary ---
Author Organization [facility] Address [address] [place] [address] Care Team Providers Care Tubular Riveter Name Role Phone Taco Christian MD Primary Care Provider Gaby Mondragon MD Unavailable [phone] Katy Saldivar PA-C Unavailable [phone] Florence Bergeron MD Unavailable Allergies Active Allergy Reactions Criticality Noted Date Comments Beta Adrenergic Blockers Unknown 05/22/2016 intolerant Pravastatin Joint Pain Low 10/12/2017 Medications montelukast (SINGULAIR) 10 MG tablet Take 1 tablet (10 mg total) by mouth nightly at bedtime. Active temazepam 30 MG capsule Take 1 capsule (30 mg total) by mouth nightly as needed for Sleep. 90 capsule 0 Active REPATHA SURECLICK 140 MG/ML injection (PEN) 1 Active coenzyme Q10 50 MG capsule Take 1 capsule (50 mg total) by mouth daily. Take 200 mg daily Active pantoprazole EC (PROTONIX) 40 MG tablet Take 1 tablet (40 mg total) by mouth daily. 3 Active chlordiazePOXID E (LIBRIUM) 5 MG capsule Take 1 capsule (5 mg total) by mouth. As needed/directed 3 Active ELIQUIS 5 MG tablet Take 1 tablet (5 mg total) by mouth 2 (two) times daily. 3 Active fluticasone propionate (FLONASE) 50 MCG/ACT nasal spray As directed Active diphenhydrAMINE (BENADRYL) 25 MG capsule Take 1 capsule (25 mg total) by mouth as needed. Take 1-2 tablets at bedtime as needed for sinus congestion Active aspirin EC (ECOTRIN) 81 MG tablet Take 1 tablet (81 mg total) by mouth daily. 3 Active ALPRAZolam (XANAX) 0.25 MG tabletIndicatio ns:Anxiety Take 1 tablet (0.25 mg total) by mouth nightly at bedtime. 90 tablet 4 Active Additional Information Patient taking differently:0.25 mg OralPRN, Reported on 05/01/2024 amiodarone (PACERONE) 200 MG tablet Take 1 tablet (200 mg total) by mouth daily. Please take 200mg twice a day for 21 days then take 200mg once a day 60 tablet 11 4 Active metoprolol succinate ER (TOPROL-XL) 25 MG 24 hr tablet TAKE 1 TABLET (25 MG TOTAL) BY MOUTH DAILY. 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 09/24/2024 Chronic anticoagulation 09/24/2024 TIA (transient ischemic attack) 06/26/2023 Persistent atrial fibrillation ([facility]) 06/26/2023 NSTEMI (non-ST elevated myoc ardial infarction) ([facility]) 06/09/2021 S/P coronary artery stent placement 04/03/2017 Anxiety 04/03/2017 Abnormal nuclear stress test 08/30/2016 CAD (coronary artery disease) Hyperlipidemia GERD (gastroesophageal reflux disease) Resolved Problems Problem Noted Date Diagnosed Date Resolved Date 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 [address] [place] [address] Abstract, Doc Pccl 09/24/2024 2:00 PM CDT [facility] [address] [place] [address] Katy Saldivar PA-C Follow Up 09/24/2024 1:36 PM CDT - 09/24/2024 11:59 PM CDT Hospital [facility] [place] [address] Katy Saldivar PA-C Discharge Disposition: Home or Self Care (Routine Discharge) 09/24/2024 Travel 09/23/2024 Orders Only [facility] [place] [address] Gaby Mondragon MD from Last 3 Months Family History Medical History Relation Comments Heart Attack Brother Heart Attack Father Relation Status Comments Brother Alive Father Mother Social History Tobacco Use Types Packs/Day Years Used Date Smoking Tobacco: Never Smokeless Tobacco: Never Tobacco Cessation:Counseling Given: Not Answered Alcohol Use Standard Drinks/Week Comments Yes 10 (1 standard drink = 0.6 oz pu re alcohol) Social Drinker Sex and Gender Information Value Date Recorded Sex Assigned at Male 07/03/2024 9:40 AM JOB DEVELOPMENT SPECIALIST Legal Sex Male 9:59 PM CDT Gender Identity Not on file Sexual Orientation Not on file 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 on fi le Last Filed Vital Signs Vital Sign Reading Time Taken Comments Blood Pressure 145/66 09/24/2024 1:54 PM CDT Pulse 78 09/24/2024 1:54 PM CDT Temperature 36.7 C (98.1 F) 07/03/2024 10:14 AM JOB DEVELOPMENT SPECIALIST Respiratory Rate 18 09/24/2024 1:54 PM CDT Oxygen Saturation 98% 09/24/2024 1:54 PM CDT Inhaled Oxygen Concentration - - Weight 90.6 kg (199 lb 12.8 oz) 09/24/2024 1:54 PM CDT Height 177.8 cm (5' 10) 09/24/2024 1:54 PM CDT Body Mass Index 28.67 09/24/2024 1:54 PM CDT Plan of Treatment Upcoming Encounters Date Type Department Care Team (Late st Contact Info) Description 12/05/2024 10:15 AM CDT [facility] [place] [address] Florence Bergeron MD [address] [place] [address] Health Maintenance Due Date Last Done Comments DTaP, Tdap and Td Vaccines ( 1 - Tdap) 1963 Zoster Vaccines (1 of 2) 1994 AAA SCREENING 2009 Annual Medicare Wellness Visit 2009 RSV Immunization or 60+ Years (1 - 1-dose 75+ series) 2019 COVID-19 Vaccine ( - 2023-2 5 season) 2024 04/05/2021, 07/23/2020, 07/02/2020 Pneumococcal Vaccine: 50+ Years Completed 05/29/2021, 12/09/2014, 12/26/2012 Meningococcal B Vaccine Aged Out No l onger eligible based on patient's age to complete this topic Meningococcal Vaccine Aged Out No shankar audrey eligible based on patient's age to complete this topic RSV Immunizations Under 20 Months Aged Out No longer eligible b ased on patient's age to complete this topic Medical Devices Implanted Type Area Branch Store Manager Device Identifier Shelf Expiration Date Model / Serial / Lot Cv Synergy Se Mid Rca Stent-06/10/19 Implanted:Qty : 1 on 06/10/2021 by Vince Hurtado MD Stent Coronary RCA [employer] 10/26/2022 [id number] / / [id number] Cv Synergy Se Proc Rca Stent-06/10/19 Implanted:Qty : 1 on 06/10/2021 by Vince Hurtado MD Stent Coronary [employer] 02/09/2023 [id number] / / [id number] Procedures Procedure Name Priority Date/Time Associated Diagnosis Comments COMPREHENSIVE METABOLIC PANEL Routine 10/14/2024 LIPID PANEL Routine 10/14/2024 CBC, MANUAL DIFF Routine 10/14/2024 THYROXINE, FREE (FT4) Routine 10/14/2024 HEMOGLOBIN, GLYCOSYLATED Routine 10/14/2024 THYROID STIM HORMONE TSH Routine 10/14/2024 FREE T3 Routine 10/14/2024 ECG 12-LEAD Routine 09/24/2024 1:45 PM CDT Persistent atrial fibrillation ([facility]) from Last 3 Months Results * HEMOGLOBIN, GLYCOSYLATED (10/14/2024) Pathologist [facility] HGB A1C 5.5 % Narrative Resulting Agency Comment [facility] [place] Taco Christian MD LABORATORY Final Result * FREE T3 (10/14/2024) [facility] FREE T3 3.2 Narrative Resulting Agency Comment [facility] [place] Taco Christian MD LABORATORY Final Result * COMPREHENSIVE METABOLIC PANEL (10/14/2024) [facility] SODIUM S/P/B 142 GLUCOSE 100 mg/dL AST 24 BUN 24 CREATININE S/P/B 0.80 0.7 - 1.3 CALCIUM S/P/B 9.4 POTASSIUM S/P/B 4.6 CHLORIDE S/P/B 107 ALT 21 GFR ESTIMATE 89 Narrative Resulting Agency Comment [facility], [place], [place] Taco Christian MD LABORATORY Final Result * LIPID PANEL (10/14/2024) [facility] CHOLESTEROL 138 TRIGLYCERIDES 106 HDL 64 LDL (CALCULATED) 55 CHOL/HDL RATIO 2.2 NON HDL CHOLESTEROL 74 Narrative Resulting Agency Comment [facility] [place], [place] Taco Christian MD LABORATORY Final Result * CBC, MANUAL DIFF (10/14/2024) [facility] WBC 5.7 HGB 14.2 HCT 43.1 PLT 185 Narrative Resulting Agency Comment [facility], [place], [place] Taco Christian MD LABORATORY Final Result * THYROXINE, FREE (FT4) (10/14/2024) FREE T4 1.3 Narrative Resulting Agency Comment [facility], [place], [place] Taco Christian MD LABORATORY Final Result * THYROID STIM HORMONE TSH (10/14/2024) TSH 1.03 Narrative Resulting Agency Comment [facility], [place], [place] Taco Christian MD LABORATORY Final Result * ECG 12 lead (HOSPITAL PERFORMED ONLY) (09/24/2024 1:45 PM CDT) 09/24/2024 1:45 PM CDT Narrative [facility] - 09/26/2024 6:18 AM CDT [address] [place] [address] Test Date: 2024-09-24 Pat Name: TRAM FLOWER Department: 3 Room: Gender: Male Supervisor Sample Preparation: : 1945 Requested By: GABY MONDRAGON Order Number: [id number] Lelia MD: Gaby Mondragon Measurements Intervals [place] Rate: 65 P: 66 ID: [id number] QRS: 24 QRSD: 120 T: 60 QT: 451 QTc: 471 Interpretive Statements SINUS RHYTHM WITH FIRST DEGREE AV BLOCK RBBB SEPTAL MYOCARDIAL INFARCTION , PROBABLY OLD Procedure Note Gaby Mondragon MD - 09/26/[address] [place] [address] Test Date: 2024-09-24 Pat Name: TRAM FLOWER Department: 3 Room: Gender: Male Supervisor Sample Preparation: : 1945 Requested By: GABY MONDRAGON Order Number: [id number] Reading MD: Gaby Mondragon Measurements Intervals [place] Rate: 65 P: 66 ID: [id number] QRS: 24 QRSD: 120 T: 60 QT: 451 QTc: 471 Interpretive Statements SINUS RHYTHM WITH FIRST DEGREE AV BLOCK RBBB SEPTAL MYOCARDIAL INFARCTION , PROBABLY OLD us Gaby Mondragon MD ECG ORDERABLES Final Res ult [facility] from Last 3 Months Insurance AET[employer] Advance Directives * Full Code (Latest Code Status on File) Date Activated Date Inactivated Comments 06/10/2021 9:21 PM 06/11/2021 1:22 PM * Full Code Date Activated Date Inactivated Comments 06/09/2021 10:00 PM 06/10/2021 9:21 PM Care Teams Tubular Riveter Relationship Specialty Start Date End Date Taco Christian MD [address] [place] [address] PCP - General INTERNAL MEDICINE 07/03/16 Gaby Mondragon MD [address] [place] [address] Consulting Physician CLINICAL CARDIAC ELECTROPHYSIOLOGY 03/10/24 Katy Saldivar PA-C [address] [place], [place] [address] Referring Physician PHYSICIAN CONSUMER AFFAIRS MANAGER 03/10/24 Florence Bergeron MD [address] [place], [place] [address] Consulting Physician CARDIOVASCULAR DISEASE 05/01/24
--- OUTSIDE RECORDS SUMMARY | 2024-10-30 15:31 | XMS_ITS | Encounter Summary ---
Author Organization [facility] Address [address] [place] [address] Care Team Providers Care Quartz Cutter Name Role Phone Taco Christian MD Primary Care Provider [phone] Milan Meredith MD Unavailable [phone] Katy Saldivar PA-C Unavailable [phone] Florence Bergeron MD Unavailable Reason for Visit * Reason Onset Date Comments Reschedule 10/29/2024 Encounter Details Date Type Department Care Team (Late st Contact Info) Description 10/29/2024 Telephone [facility] [address] [place] [address] Florence Bergeron MD [address] [place] [address] Reschedule Social History Tobacco Use Types Packs/Day Years Used Date Smoking Tobacco: Never Smokeless Tobacco: Never Alcohol Use Standard Drinks/Week Comments Yes 10 (1 standard drink = 0.6 oz pu re alcohol) Social Drinker Sex and Gender Information Value Date Recorded Sex Assigned at Male 07/03/2024 9:40 AM AUTOMATION QA LEAD Legal Sex Male 9:59 PM CDT Gender Identity Not on file Sexual Orientation Not on file 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 Answer Date of Assessment Author Status No 06/09/2021 9:42 PM AUTOMATION QA LEAD Activ e * Do you have serious difficulty walking or climbing stairs? Answer Date of Assessment Author Status No 06/09/2021 9:42 PM Niall Torres R N Active * Do you have difficulty dressing or bathing? Answer Date of Assessment Author Status No 06/09/2021 9:42 PM Niall Torres R N Active * Because of a physical, mental, or emotional condition, do you have difficulty doing errands alone such as visiting a doctor's office or shopping? Answer Date of Assessment Author Status No 06/09/2021 9:42 PM Niall Torres R N Active documented as of this encounter Mental Status * Because of a physical, mental, or emotional condition, do you have serious difficulty concentrating, remembering, or making decisions? Answer Entry Date Author Status No 06/09/2021 9:42 PM Niall Torres R N Active documented in this encounter Progress Notes * Aicha Encinas - 10/29/2024 10:56 AM CDT Received message that pt wants to be scheduled at [facility] not [facility]. Pt is now rescheduled to [facility] on 12/05/24 1015am Called and LVM for pt that his appt was rescheduled to [facility] and also mailed letter documented in this encounter Plan of Treatment Upcoming Encounters Date Type Department Care Team (Late st Contact Info) Description 12/05/2024 10:15 AM CDT Office Visit [facility] [address] [place] [address] Florence Bergeron MD [address] [place] [address] documented as of this encounter Visit Diagnoses Not on filedocumented in this encounter Care Teams Quartz Cutter Relationship Specialty Start Date End Date Taco Christian MD [address] [place] [address] PCP - General INTERNAL MEDICINE 07/03/16 Milan Meredith MD [address] [place] [address] Consulting Physician CLINICAL CARDIAC ELECTROPHYSIOLOGY 03/10/24 Katy Saldivar PA-C [address] [place], [place] [address] Referring Physician PHYSICIAN DEPOSITION REPORTER 03/10/24 Florence Bergeron MD [address] [place], [place] [address] Consulting Physician CARDIOVASCULAR DISEASE 05/01/24 documented as of this encounter
--- OUTSIDE RECORDS SUMMARY | 2024-10-30 15:31 | XMS_ITS | Encounter Summary ---
Author Organization [facility] Address [address] [place] [address] Care Team Providers Care Sinker Puller Name Role Phone Franko Carreon MD Primary Care Provider [phone] Cj Rodriguez MD Unavailable [phone] Taco Christian MD Primary Care Provider [phone] Doris Fink MD Unavailable [phone] Milan Merediht MD Unavailable [phone] Katy Saldivar PA-C Unavailable [phone] Florence Bergeron MD Unavailable Encounter Details Date Type Department Care Team (Late st Contact Info) Description 05/10/2016 Abstract [facility] [address] [place] [address] Cj Rodriguez MD [address] [place] [address] Social History Tobacco Use Types Packs/Day Years Used Date Smoking Tobacco: Never Sex and Gender Information Value Date Recorded Sex Assigned at Male 07/03/2024 9:40 AM RESTAURANT HOST/HOSTESS Legal Sex Male 9:59 PM CDT Gender Identity Not on file Sexual Orientation Not on file 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 on fi le documented as of this encounter Plan of Treatment Upcoming Encounters Date Type Department Care Team (Late st Contact Info) Description 12/05/2024 10:15 AM CDT Office Visit [facility] [place] [address] Florence Bergeron MD [address] [place] [address] documented as of this encounter Visit Diagnoses Not on filedocumented in this encounter Additional Health Concerns Infection Onset Date Last Indicated Resolved Time COVID-19 Rule Out 06/09/2021 06/09/2021 06/09/2021 10:44 PM RESTAURANT HOST/HOSTESS documented as of this encounter Care Teams Sinker Puller Relationship Specialty Start Date End Date Franko Carreon MD [address] [place] [phone] PCP - General INTERNAL MEDICINE 05/17/16 07/02/16 Taco Christian MD [address] [place] [address] PCP - General INTERNAL MEDICINE 07/03/16 Cj Rodriguez MD [address] [place] [address] [place] Almond Blancher CARDIOVASCULAR DISEASE 05/17/16 12/23/23 Doris Fink MD [address] [place] [address] INTERVENTIONAL CARDIOLOGY 12/24/23 Milan Meredith MD [address] [place] [address] Consulting Physician CLINICAL CARDIAC ELECTROPHYSIOLOGY 03/10/24 Katy Saldivar PA-C [address] [place] [address] Referring Physician PHYSICIAN JAVASCRIPT DEVELOPER 03/10/24 Florence Bergeron MD [address] [place] [address] Consulting Physician CARDIOVASCULAR DISEASE 05/01/24 documented as of this encounter
--- OUTSIDE RECORDS SUMMARY | 2024-10-30 15:31 | XMS_ITS | Encounter Summary ---
Author Organization [facility] Address [address] [place] [address] Care Team Providers Care Dry Cleaning Attendant Name Role Phone Taco Christian MD Primary Care Provider [phone] Doris Fink MD Unavailable [phone] Milan Meredith MD Unavailable [phone] Katy Saldivar PA-C Unavailable [phone] Florence Bergeron MD Unavailable Encounter Details Date Type Department Care Team (Late st Contact Info) Description 01/21/2024 Triangulate Message [facility] [address] [place] [address] Doris Fink MD [address] [place] [address] AFIB MONITOR Social History Tobacco Use Types Packs/Day Years Used Date Smoking Tobacco: Never Smokeless Tobacco: Never Alcohol Use Standard Drinks/Week Comments Yes 10 (1 standard drink = 0.6 oz pu re alcohol) Social Drinker Sex and Gender Information Value Date Recorded Sex Assigned at Male 07/03/2024 9:40 AM REPRODUCTIVE SURGEON Legal Sex Male 9:59 PM CDT Gender [...] Assessment Author Status No 06/09/2021 9:42 PM REPRODUCTIVE SURGEON Activ e * RETIRED Are you blind or do you have serious difficulty seeing, even when wearing glasses? Answer Date of Assessment Author Status No 06/09/2021 9:42 PM REPRODUCTIVE SURGEON Activ e * Do you have serious [...] R N Active documented in this encounter Plan of Treatment Upcoming Encounters Date Type Department Care Team (Late st Contact Info) Description 12/05/2024 10:15 AM CDT Office Visit [facility] [place] [address] Florence Bergeron MD [address] [place] [address] documented as of this encounter Visit Diagnoses Not on filedocumented in this encounter Care Teams Dry Cleaning Attendant Relationship Specialty Start Date End Date Taco Christian MD [address] [place] [address] PCP - General INTERNAL MEDICINE 07/03/16 Doris Fink MD [address] [place] [address] INTERVENTIONAL CARDIOLOGY 12/24/23 Milan Meredith MD [address] [place] [address] Consulting Physician CLINICAL CARDIAC ELECTROPHYSIOLOGY 03/10/24 Katy Saldivar PA-C [address] [place], [place] [address] Referring Physician PHYSICIAN ATMOSPHERIC PHYSICS PROFESSOR 03/10/24 Florence Bergeron MD [address] [place] [address] Consulting Physician CARDIOVASCULAR DISEASE 05/01/24 documented as of this encounter
--- OUTSIDE RECORDS SUMMARY | 2024-10-30 15:32 | XMS_ITS | Continuity of Care Document ---
Author Organization [facility] Address [address] [place] [address] Phone Care Team Providers Care Stock Associate Name Role Phone Tiara OD, Caitlyn Unavailable [...] Providers Copied on Encounter Office/outpa tient Visit, [facility], [address], [place], [place], [id number], tel:[phone] [place] Professional Follow up visit (chief complaint) Ptosis, bilateralDry eye syndrome of bilateral lacrimal glands 5 Tiara OD Caitlyn. [address] [place] [address] [address], [place], [place], [id number], [place]. tel:[phone] Referring Provider: Caitlyn Melendez, [address] [place] [address] [address], [place], [address] . tel:[phone] Office/outpa tient Visit, [facility], [address], [place], [place], [id number], tel:[phone] [place] Professional Follow up visit (chief complaint) Dry eye syndrome of bilateral lacrimal glands Jan- 4 Tiara OD Caitlyn. [address], [place], [place], [address], . tel:[phone] Referring Provider: Caitlyn Melendez, [address] [place] [address] [address], [place], [address] . tel:[phone] Office/outpa tient Visit, [facility], [address], [place], [place], [address], tel:[phone] [place] Professional Complete Exam (chief complaint) Dry eye syndrome of bilateral lacrimal glandsPseudoph tamera Sep-0 4 Tiara OD Caitlyn. [address], [place], [place], [address], [place]. tel:[phone] [facility], [address], [place], [place], [address], [place] tel:[phone] [place] No Information 4 Tiara OD Caitlyn. [address], [place], [place], [address], [place]. tel:[phone] Family History Family Member Type Diagnosis Age At Onset No Information Payers Payer name Insurance type Covered republican ID Maricel cunningham(s) Jluis CI [id number] Social History Type Description Quantity Date Captured [...]
--- OUTSIDE RECORDS SUMMARY | 2024-10-30 15:32 | XMS_ITS | Clinical Summary ---
Author Organization [address] Address [facility] [place] [address] Care Team Providers Care Automobile Sales Consultant Name Role Phone Taco Christian MD Primary Care Provider + [phone] Ethan Wade MD Unavailable [phone] Allergies Active Allergy Reactions Criticality Noted Date Comments Pravastatin Joint pain Low 11/16/2020 Medications aspirin (ASPIR-81) 81 mg tablet take 1 Tablet by oral route every day 0 0 01/13/20 16 Active Additional Information Patient taking differently:81 mgoral Every morning, Indications: Cerebral Thromboembolism Prevention, Myocardial Reinfarction Prevention, prevention of thrombosis, stroke 11/16/2019, ID around 2020, Informant: Self, Reported on 08/13/2024 montelukast (SINGULAIR) 10 mg tabletIndication s:Seasonal Allergic Rhinitis Take 1 tablet (10 mg total) by mouth nightly Active pantoprazole DR (PROTONIX) 20 mg EC tabletIndication s:Treatment of Non-Bleeding Gastric Disorder Take 1 tablet (20 mg total) by mouth daily as needed for heartburn Active temazepam (RESTORIL) 15 mg capsuleIndicatio ns:Insomnia Take 2 capsules (30 mg total) by mouth nightly as needed for sleep 10/29/19 21 Active apixaban (Eliquis) 2.5 mg tabletIndication s:Other (complete free text reason below),Venous Thrombosis,strok e 11/16/2019 Take 1 tablet (2.5 mg total) by mouth 2 (two) times a day Activ e ALPRAZolam (XANAX) 0.25 mg tabletIndication s:sleep Take 1 tablet (0.25 mg total) by mouth nightly as needed for sleep 07/19/19 24 Active amiodarone (PACERONE) 200 mg tabletIndication s:Ventricular Rate Control in Atrial Fibrillation Take 1 tablet (200 mg total) by mouth every morning 05/01/20 24 Active diphenhydrAMINE 25 mg capsuleIndicatio ns:sleep Take 1 tablet/capsule (25 mg total) by mouth as needed for sleep or allergies Active Repatha SureClick 140 mg/mL pen injectorIndicati ons:hypercholest erolemia Inject 1 mL (140 mg total) under the skin every 21 days Tuesdays. Last dose around Sunday08/05/24 12/05/19 21 Active fluticasone propionate (FLONASE) 50 mcg/actuation nasal sprayIndications :Allergic Conjunctivitis,A llergic Rhinitis Administer 1 spray into affected nostril(s) 2 (two) times a day as needed for allergies Active metoprolol XL (TOPROL-XL) 25 mg extended release tabletIndication s:hypertension Take 1 tablet (25 mg total) by mouth every morning 02/18/20 24 Active co-enzyme Q-10 50 mg capsuleIndicatio ns:supplement Take 1 capsule (50 mg total) by mouth daily Active erythromycin (ILOTYCIN) ophthalmic ointment Place on incisions three times per day and in operative eye as needed. 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 Mixed hyperlipidemia Coronary artery disease Hypertension Encounters Date Type Department Care Team Description 08/21/2024 10:00 AM CDT Office Visit [facility] Ophthalmology [address] [facility] 6th [place] [address] Ethan Wade MD Myogenic ptosis of eyelid of both eyes (Primary Dx) 08/13/2024 10:59 AM CDT Anesthesia Event [facility]) [address] [place] [address] Tayo Xiong MD Schneider, Alexandra Marie, GRAIN DISTRIBUTOR 08/13/2024 10:40 AM CDT - 08/13/2024 11:40 AM CDT Surgery [facility]) [facility] [place] [address] Ethan Wade MD Bilateral upper lid ptosis repair 08/13/2024 8:32 AM CDT - 08/13/2024 12:47 PM CDT Hospital Encounter [facility]) [address] [place] [address] Ethan Wade MD Myogenic ptosis of eyelid of both eyes [H02.423] (Primary Dx); Loss of peripheral visual field, bilateral [H53.453] Discharge Disposition: Discharge to home or self care 08/11/2024 Telephone [facility] Ophthalmology [address] [facility] [address], [address] [place] [address] Ethan Wade MD 08/01/2024 Telephone [facility] Ophthalmology [address] [facility] 2nd Floor [address] [place] [address] Ethan Wade MD from Last 3 Months Surgical History Surgery Date Site/Laterality Comments CARDIAC STENT PLACEMENT 05/14/2016 - 05/13/2017 1x stent CATARACT EXTRACTION Bilateral CARDIAC STENT PLACEMENT 05/14/2020 - 05/13/2021 2x stents Medical History Medical History Date Comments Coronary artery disease Depression Anxiety Mixed hyperlipidemia Asthma Hypertension Rheumatic fever in pediatric patient Sleep apnea no cpap Family History Medical History Relation Name Comments Cardiomyopathy Brother 1 Coronary artery disease Brother 1 Jose F nary artery disease; Stroke Brother 2 Heart attack Father Myocardial infa rction; Cause of : Myocardial infarction Hypertension Mother Coronary artery disease Sister 1 Jose F nary artery disease; Hypertension Sister 1 Hodgkin's lymphoma Sister 2 Anesthesia problems Neg Hx Relation Name Status Comments Brother 1 Brother 2 Father Mother Sister 1 Sister 2 Social History Tobacco Use Types Packs/Day Years Used Date Smoking Tobacco: Never Smokeless Tobacco: Never Tobacco Cessation:Counseling Given: Not Answered Alcohol Use Standard Drinks/Week Comments Yes 0 (1 standard drink = 0.6 oz pur e alcohol) AUDIT-C Answer Date Recorded Q1: How often do you have a drink containing alc ohol? 2-3 times a week 07/18/2024 Q2: How many drinks containi ng alcohol do you have on a typical day when you are drinking? 3 or 4 07/18/2024 Q3: How often do you have si x or more drinks on one occasion? Never 07/18/2024 PHQ-2 Answer Date Recorded PHQ-2 Total Score (If total score is 3 or more points, staff should administer the PHQ-9) 2 11/15/2020 Personal Safety Answer Date Recorded Have you ever been in or are you currently in a harmful physical or emotional relationship or is someone making you feel afraid or unsafe? Denies 08/13/2024 Sex and Gender Information Value Date Recorded Sex Assigned at Not on file Legal Sex Male 2:00 AM LEHR LOADER Gender Identity Male 07/23/2021 8:09 PM LEHR LOADER Sexual Orientation Straight 07/23/2021 8: 09 PM LEHR LOADER Obstetrics History Last Filed Vital Signs Vital Sign Reading Time Taken Comments Blood Pressure 134/66 08/13/2024 12:20 PM CDT Pulse 56 08/13/2024 12:20 PM CDT Temperature 36 C (96.8 F) 08/13/2024 11:54 AM CDT Respiratory Rate 12 08/13/2024 12:20 PM CDT Oxygen Saturation 97% 08/13/2024 12:20 PM CDT Inhaled Oxygen Concentration - - Weight 89.4 kg (197 lb) 08/13/2024 9:30 AM CDT Height 179.1 cm (5' 10.5) 07/18/2024 4:45 PM CS T Body Mass Index 27.87 07/18/2024 4:45 PM LEHR LOADER Plan of Treatment Health Maintenance Due Date Last Done Comments DTaP/Tdap/Td Vaccine (1 - Tdap) 1955 Hepatitis B Screening 1962 Zoster Vaccine (1 of 2) 1994 Well Visit 65+ 2009 Pneumococcal vaccine 65+ (2 of 2 - PPSV23) 12/10/2015 12/09/2014, 12/26/2012 Depression Screening 11/15/2021 11/15/2020 Influenza Vaccine (Season Ended) 2025 01/22/20 20, 03/09/2018 Fall Risk Assessment 08/13/2025 08/13/2024 Medical Devices Implanted Type Area Spray Maker Device Identifier Shelf Expiration Date Model / Serial / Lot Stent Implanted:Qty: 3 Stent Heart Description:2x stents around 2020 and 1x stent in 2017 Procedures Procedure Name Priority Date/Time Associated Diagnosis Comments REPAIR PTOSIS 08/13/2024 11:04 AM CDT 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
--- OUTSIDE RECORDS SUMMARY | 2024-10-30 15:32 | XMS_ITS | Encounter Summary ---
Author Organization [facility] Address [address] [place] [address] Care Team Providers Care Defense Attorney Name Role Phone Cj Rodriguez MD Unavailable [phone] Taco Christian MD Primary Care Provider [phone] Doris Fink MD Unavailable [phone] Milan Meredith MD Unavailable [phone] Katy Saldivar PA-C Unavailable [phone] Florence Bergeron MD Unavailable Encounter Details Date Type Department Care Team (Late st Contact Info) Description 06/13/2021 Hospital Follow-up Call [facility] Cardiovascular Care Unit [address] [place] [address] Allyson Goldberg, RN Social History Tobacco Use Types Packs/Day Years Used Date Smoking Tobacco: Never Smokeless Tobacco: Never Alcohol Use Standard Drinks/Week Comments Yes 0 (1 standard drink = 0.6 oz pur e alcohol) very minimal Sex and Gender Information Value Date Recorded Sex Assigned at Male 07/03/2024 9:40 AM SALES RELATIONSHIP MANAGER Legal Sex Male 9:59 PM CDT Gender Identity Not on file Sexual Orientation Not on file 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 No / Unsure 06/09/2021 9:56 PM SALES RELATIONSHIP MANAGER documented as of this encounter Functional Status * RETIRED Are you deaf or do you have serious difficulty hearing Answer Date of Assessment Author Status No 06/09/2021 9:42 PM SALES RELATIONSHIP MANAGER Activ e * RETIRED Are you blind or do you have serious difficulty seeing, even when wearing glasses? Answer Date of Assessment Author Status No 06/09/2021 9:42 PM SALES RELATIONSHIP MANAGER Activ e * Do you have serious difficulty walking or climbing stairs? Answer Date of Assessment Author Status No 06/09/2021 9:42 PM SALES RELATIONSHIP MANAGER Niall Baum R N Active * Do you have difficulty dressing or bathing? Answer Date of Assessment Author Status No 06/09/2021 9:42 PM SALES RELATIONSHIP MANAGER Niall Baum R N Active * Because of a physical, mental, or emotional condition, do you have difficulty doing errands alone such as visiting a doctor's office or shopping? Answer Date of Assessment Author Status No 06/09/2021 9:42 PM SALES RELATIONSHIP MANAGER Niall Baum R N Active documented as of this encounter Mental Status * Because of a physical, mental, or emotional condition, do you have serious difficulty concentrating, remembering, or making decisions? Answer Entry Date Author Status No 06/09/2021 9:42 PM SALES RELATIONSHIP MANAGER Niall Baum R N Active documented in this encounter Plan of Treatment Upcoming Encounters Date Type Department Care Team (Late st Contact Info) Description 12/05/2024 10:15 AM CDT Office Visit [facility] [place] [address] Florence Bergeron MD [address] [place], [place] [address] documented as of this encounter Visit Diagnoses Not on filedocumented in this encounter Care Teams Defense Attorney Relationship Specialty Start Date End Date Taco Christian MD [address] [place] [address] PCP - General INTERNAL MEDICINE 07/03/16 Cj Rodriguze MD [address] [place] [address] [place] Manager Ecommerce CARDIOVASCULAR DISEASE 05/17/16 12/23/23 Doris Fink MD [address] [place] [address] INTERVENTIONAL CARDIOLOGY 12/24/23 Milan Meredith MD [address] [place] [address] Consulting Physician CLINICAL CARDIAC ELECTROPHYSIOLOGY 03/10/24 Katy Saldivar PA-C [address] [place] [address] Referring Physician PHYSICIAN CONTROL VALVE MECHANIC 03/10/24 Florence Bergeron MD [address] [place] [address] Consulting Physician CARDIOVASCULAR DISEASE 05/01/24 documented as of this encounter
--- OUTSIDE RECORDS SUMMARY | 2024-10-30 15:32 | XMS_ITS | Referral Summary ---
Author Organization [address] Address [facility] [place] [address] Care Team Providers Care Iron Erector Name Role Phone Taco Christian MD Primary Care Provider [phone] Ethan Wade MD Unavailable [phone] Encounters Date Type Department Care Team Description 08/21/2024 10:00 AM CDT Office Visit [facility] Ophthalmology [address] [facility] 6th [place] [address] Ethan Wade MD Myogenic ptosis of eyelid of both eyes (Primary Dx) 08/13/2024 10:40 AM CDT - 08/13/2024 11:40 AM CDT Surgery [facility] ([facility]) [address] [place] [address] Ethan Wade MD Bilateral upper lid ptosis repair 08/13/2024 10:59 AM CDT Anesthesia Event [facility] ([facility]) [address] [place] [address] Tayo Xiong MD Schneider, Alexandra Marie, NP 08/13/2024 8:32 AM CDT - 08/13/2024 12:47 PM CDT Hospital Encounter [facility] ([facility]) [address] [place] [address] Ethan Wade MD Myogenic ptosis of eyelid of both eyes [H02.423] (Primary Dx); Loss of peripheral visual field, bilateral [H53.453] Discharge Disposition: Discharge to home or self care 08/11/2024 Telephone [facility] Ophthalmology [address] [facility] 2nd Floor, [address] [place] [address] Ethan Wade MD 08/01/2024 Telephone [facility] Ophthalmology [address] [place] [address] Ethan Wade MD from Last 3 Months Allergies Active Allergy Reactions Criticality Noted Date Comments Pravastatin Joint pain Low 11/16/2020 Medications aspirin (ASPIR-81) 81 mg tablet take 1 Tablet by oral route every day 0 0 01/13/20 16 Active Additional Information Patient taking differently:81 mgoral Every morning, Indications: Cerebral Thromboembolism Prevention, Myocardial Reinfarction Prevention, prevention of thrombosis, stroke 11/16/2019, [place] around 2020, Informant: Self, Reported on 08/13/2024 [...] 11/15/2020 Mixed hyperlipidemia Coronary artery disease Hypertension Social History Tobacco Use Types Packs/Day Years [...] on file Legal Sex Male 2:00 AM PRODUCT TECHNICIAN Gender Identity Male 07/23/2021 8:09 PM PRODUCT TECHNICIAN Sexual Orientation Straight 07/23/2021 8: 09 PM PRODUCT TECHNICIAN Last Filed Vital Signs Vital Sign Reading [...] Body Mass Index 27.87 07/18/2024 4:45 PM PRODUCT TECHNICIAN Plan of Treatment Not on file Medical Devices Implanted Type Area Rock Crushing Machine Operator Device Identifier Shelf Expiration Date Model / Serial / Lot Stent Implanted:Qty: 3 Stent Heart Description:2x stents around 2020 and 1x stent in 2016 Procedures Procedure Name Priority Date/Time Associated Diagnosis Comments REPAIR PTOSIS 08/13/2024 11:04 AM CDT 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
--- OUTSIDE RECORDS SUMMARY | 2024-10-30 15:32 | XMS_ITS | Encounter Summary ---
Author Organization [facility] Address [address] [place] [address] Care Team Providers Care Environmental Engineering Aide Name Role Phone Cj Rodriguez MD Unavailable [phone] Taco Christian MD Primary Care Provider [phone] Doris Fink MD Unavailable [phone] Milan Meredith MD Unavailable [phone] Katy Saldivar PA-C Unavailable [phone] Florence Bergeron MD Unavailable Encounter Details Date Type Department Care Team (Late st Contact Info) Description 07/13/2022 Abstract [facility] [address] [place] [address] Cj Rodriguez MD [address] [place] [address] Social History Tobacco Use Types Packs/Day Years Used Date Smoking Tobacco: Never Smokeless Tobacco: Never Alcohol Use Standard Drinks/Week Comments Yes 0 (1 standard drink = 0.6 oz pur e alcohol) 4-6 per week Sex and Gender Information Value Date Recorded Sex Assigned at Male 07/03/2024 9:40 AM COLLEGE ADMINISTRATOR Legal Sex Male 9:59 PM CDT Gender Identity Not on file Sexual Orientation Not on file 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 No / Unsure 07/12/2022 1:17 PM COLLEGE ADMINISTRATOR documented as of this encounter Functional Status * RETIRED Are you deaf or do you have serious difficulty hearing Answer Date of Assessment Author Status No 06/09/2021 9:42 PM COLLEGE ADMINISTRATOR Activ e * RETIRED Are you blind or do you have serious difficulty seeing, even when wearing glasses? Answer Date of Assessment Author Status No 06/09/2021 9:42 PM COLLEGE ADMINISTRATOR Activ e * Do you have serious difficulty walking or climbing stairs? Answer Date of Assessment Author Status No 06/09/2021 9:42 PM COLLEGE ADMINISTRATOR Niall Baum R N Active * Do you have difficulty dressing or bathing? Answer Date of Assessment Author Status No 06/09/2021 9:42 PM COLLEGE ADMINISTRATOR Niall Baum R N Active * Because of a physical, mental, or emotional condition, do you have difficulty doing errands alone such as visiting a doctor's office or shopping? Answer Date of Assessment Author Status No 06/09/2021 9:42 PM COLLEGE ADMINISTRATOR Niall Baum R N Active documented as of this encounter Mental Status * Because of a physical, mental, or emotional condition, do you have serious difficulty concentrating, remembering, or making decisions? Answer Entry Date Author Status No 06/09/2021 9:42 PM COLLEGE ADMINISTRATOR Niall Baum R N Active documented in this encounter Plan of Treatment Upcoming Encounters Date Type Department Care Team (Late st Contact Info) Description 12/05/2024 10:15 AM CDT Office Visit [facility] [place] [address] Florence Bergeron MD [address] [place] [address] documented as of this encounter Procedures Procedure Name Priority Date/Time Associated Diagnosis Comments CMP (ABSTRACTED LAB) Routine 07/12/2022 PRO-BRAIN NATRIURETIC PEPTIDE Routine 07/12/2022 T3 FREE (ABSTRACTED) Routine 07/12/2022 CBC WITH DIFFERENTIAL Routine 07/12/2022 TSH (OUTSIDE LAB) Routine 07/12/2022 HEMOGLOBIN, GLYCOSYLATED Routine 07/12/2022 LIPID PANEL Routine 07/12/2022 THYROXINE, FREE (FT4) Routine 07/12/2022 documented in this encounter Results * CBC WITH DIFFERENTIAL (07/12/2022) WBC 6.1 4.8 - 10.8 RBC 4.45 4.70 - 6.10 HGB 13.8 12.4 - 15.3 HCT 41.1 37.0 - 46.0 MCV 92.4 78.0 - 102.0 MCH 31.0 27.0 - 31.0 MCHC 33.6 32.0 - 36.0 RDW 12.4 11.6 - 14.4 PLATELET COUNT 178 150 - 420 MPV 9.8 8.7 - 11.0 07/12/2022 us Default History Genericprovider LABORATORY Final Result * HEMOGLOBIN, GLYCOSYLATED (07/12/2022) HGB A1C 5.4 <5.7 % 07/12/2022 us Default History Genericprovider LABORATORY Final Result * T3 FREE (ABSTRACTED) (07/12/2022) FREE T3 3.27 07/12/2022 Default History Genericprovider LAB-OUTSIDE/ABST RACTED Final Result * THYROXINE, FREE (FT4) (07/12/2022) FREE T4 1.01 0.76 - 1.46 07/12/2022 us Default History Genericprovider LABORATORY Final Result * TSH (OUTSIDE LAB) (07/12/2022) Pathologist [facility] TSH 1.12 0.36 - 3.74 07/12/2022 us Default History Genericprovider LAB-OUTSIDE/ABST RACTED Final Result * LIPID PANEL (07/12/2022) Pathologist [facility] CHOLESTEROL 116 0 - 200 HDL 62 40 - 60 TRIGLYCERIDES 57 0 - 150 LDL (CALCULATED) 43 <130 07/12/2022 us Default History Genericprovider LABORATORY Final Result * PRO-BRAIN NATRIURETIC PEPTIDE (07/12/2022) Pathologist [facility] PRO-BRAIN NATRIURETIC PEPTIDE 87 0 - 450 07/12/2022 us Default History Genericprovider LABORATORY Final Result * CMP (ABSTRACTED LAB) (07/12/2022) Pathologist [facility] SODIUM S/P/B 145 136 - 145 POTASSIUM S/P/B 4.6 3.5 - 5.1 CHLORIDE S/P/B 109 98 - 108 CO2 30 21 - 32 BUN 19 7 - 18 CREATININE S/P/B 0.74 0.7 - 1.3 EGFR NON-AFR. AMER. >60 <=90 CALCIUM S/P/B 8.7 8.5 - 10.1 GLUCOSE 108 70 - 99 mg/dL TOTAL PROTEIN S/P/B 6.7 6.4 - 8.2 ALBUMIN S/P/B 3.6 3.4 - 5.0 AST 25 15 - 37 ALT 32 16 - 63 ALKALINE PHOSPHATASE S/P/B 91 46 - 116 BILIRUBIN TOTAL S/P/B 0.6 0.00 - 1.00 07/12/2022 us Default History Genericprovider LAB-OUTSIDE/ABST RACTED Final Result documented in this encounter Visit Diagnoses Not on filedocumented in this encounter Care Teams Environmental Engineering Aide Relationship Specialty Start Date End Date Taco Christian MD [address] [place] [address] PCP - General INTERNAL MEDICINE 07/03/16 Cj Rodriguez MD [address] [place] [address] [place] [employer] Platemaker CARDIOVASCULAR DISEASE 05/17/16 12/23/23 Doris Fink MD [address] [place] [address] INTERVENTIONAL CARDIOLOGY 12/24/23 Milan Meredith MD [address] [place] [address] Consulting Physician CLINICAL CARDIAC ELECTROPHYSIOLOGY 03/10/24 Katy Saldivar PA-C [address] [place] [address] Referring Physician PHYSICIAN INTERIM CONTROLLER 03/10/24 Florence Bergeron MD [address] [place] [address] Consulting Physician CARDIOVASCULAR DISEASE 05/01/24 documented as of this encounter
--- OUTSIDE RECORDS SUMMARY | 2024-10-30 15:32 | XMS_ITS | Encounter Summary ---
Author Organization [facility] Address [address] [place] [address] Care Team Providers Care J2Ee Developer Name Role Phone Cj Rodriguez MD Unavailable [phone] Taco Christian MD Primary Care Provider [phone] Doris Fink MD Unavailable [phone] Milan Meredith MD Unavailable [phone] Katy Saldivar PA-C Unavailable [phone] Florence Bergeron MD Unavailable Encounter Details Date Type Department Care Team (Late st Contact Info) Description 08/22/2021 Abstract [facility] [address] [place] [address] Cj Rodriguez MD [address] [place] [address] Social History Tobacco Use Types Packs/Day Years Used Date Smoking Tobacco: Never Smokeless Tobacco: Never Alcohol Use Standard Drinks/Week Comments Yes 0 (1 standard drink = 0.6 oz pur e alcohol) very minimal Sex and Gender Information Value Date Recorded Sex Assigned at Male 07/03/2024 9:40 AM CANCELLATION CLERK Legal Sex Male 9:59 PM CDT Gender Identity Not on file Sexual Orientation Not on file 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 Answer Date of Assessment Author Status No 06/09/2021 9:42 PM CANCELLATION CLERK Activ e * Do you have serious [...] Description 12/05/2024 10:15 AM CDT Office Visit [facility] [place] [address] Florence Bergeron MD [address] [place] [address] documented as of this encounter Procedures Procedure Name Priority Date/Time Associated Diagnosis Comments CMP (ABSTRACTED LAB) Routine 10/08/2020 CBC (OUTSIDE LAB) Routine 10/08/2020 HEMOGLOBIN, GLYCOSYLATED Routine 10/08/2020 LIPID PANEL Routine 10/08/2020 documented in this encounter Results * CBC (OUTSIDE LAB) (10/08/2020) WBC 6.1 4.8 - 10.8 HGB 13.7 12.4 - 15.3 HCT 40.5 37.0 - 46.0 PLT 185 150 - 420 RBC 4.55 4.70 - 6.10 10/08/2020 [facility] Abstract LAB-OUTSIDE/ABSTRACTED Final Result * HEMOGLOBIN, GLYCOSYLATED (10/08/2020) [facility] HGB A1C 5.6 % 10/08/2020 [facility] Abstract LABORATORY Final Result * LIPID PANEL (10/08/2020) [facility] [address] [facility] CHOLESTEROL 177 HDL 50 TRIGLYCERIDES 103 LDL (CALCULATED) 106 10/08/2020 [facility] Abstract LABORATORY Final Result * CMP (ABSTRACTED LAB) (10/08/2020) [facility] SODIUM S/P/B 141 136 - 145 POTASSIUM S/P/B 4.5 3.5 - 5.1 CHLORIDE S/P/B 106 98 - 108 CO2 27 21 - 32 BUN 11 7 - 18 CREATININE S/P/B 0.76 0.7 - 1.3 EGFR NON-AFR. AMER. >60 <=90 CALCIUM S/P/B 8.9 8.5 - 10.1 GLUCOSE 123 70 - 99 mg/dL TOTAL PROTEIN S/P/B 6.7 6.4 - 8.2 ALBUMIN S/P/B 3.6 3.4 - 5.0 AST 46 15 - 37 ALT 53 16 - 63 ALKALINE PHOSPHATASE S/P/B 94 46 - 116 BILIRUBIN TOTAL S/P/B 0.4 0.00 - 1.00 10/08/2020 [facility] Abstract LAB-OUTSIDE/ABSTRACTED Final Result documented in this encounter Visit Diagnoses Not on filedocumented in this encounter Care Teams J2Ee Developer Relationship Specialty Start Date End Date Taco Christian MD [address] [place] [id number] PCP - General INTERNAL MEDICINE 07/03/16 Cj Rodriguez MD [address] [place] [address] [place] [facility] CARDIOVASCULAR DISEASE 05/17/16 12/23/23 Doris Fink MD [address] [place] [address] INTERVENTIONAL CARDIOLOGY 12/24/23 Milan Meredith MD [address] [place] [address] Consulting Physician CLINICAL CARDIAC ELECTROPHYSIOLOGY 03/10/24 Katy Saldivar PA-C [address] [place], [place] [address] Referring Physician PHYSICIAN COUNTERSINKER 03/10/24 Florence Bergeron MD [address] [place], [place] [address] Consulting Physician CARDIOVASCULAR DISEASE 05/01/24 documented as of this encounter
== END 2024-10-30 15:28 | disposition home or self-care (01) ==
PROVIDERS: PCP Internal Medicine; Visit Provider Internal Medicine
DX: Z79.899 Other long term (current) drug therapy (principal)
CPT/HCPCS: 71046

== ENCOUNTER 2025-01-13 10:28 | Outpatient (CLI) | payer MEDICARE, SELFPAY ==
--- NOTE | ~2025-01-13 | XR_ITS ---
EXAMINATION: XR chest 2V DATE: 01/13/2025 10:53 INDICATION: Cough. RSV influenza TECHNIQUE: frontal and lateral views of the chest were obtained. COMPARISON: Chest radiograph dated 10/30/2024 FINDINGS: Mild biapical pleural-parenchymal scarring. There is a new nodular opacity lateral right midlung zone. No other airspace opacities, pulmonary edema, pleural effusion or pneumothorax. The cardiomediastinal silhouette is normal. There are bridging osteophytes at multiple levels consistent with diffuse id iopathic skeletal hyperostosis (DISH). IMPRESSION: 1. New nodular opacity lateral right midlung zone which is most likely related to atelectasis or an infectious/inflammatory etiology. The rapid development in 2 1/2 months would strongly against a malignant etiology. Consider either radiographic follow-up to resolution or further evaluation with chest CT. Reviewed, dictated and finalized at location A. IMPRESSION: 1. New nodular opacity lateral right midlung zone which is most likely related to atelectasis or an infectious/inflammatory etiology. The rapid development in 2 1/2 months would strongly against a malignant etiology. Consider either radi ographic follow-up to resolution or further evaluation with chest CT.
[2025-01-13 10:45] LABS: Hematocrit 39.7 % (37.0-46.0); Hemoglobin 13.3 g/dL (12.4-15.3); Mean Corpuscular HGB Conc 33.5 g/dL (32-36); Mean Corpuscular Hemoglobin 31.4 pg (27.0-31.0); Mean Corpuscular Volume 93.9 fL (78.0-102.0); Platelet Count Result 154 K/mm3 (150-420); Red Blood Count 4.23 M/mm3 (4.70-6.10); White Blood Count 7.1 K/mm3 (4.8-10.8)
[2025-01-13 10:56] LABS: Alanine Aminotransferase 37 U/L (6-50); Albumin Level 4.2 g/dL (3.5-5.1); Alkaline Phosphatase 80 U/L (38-126); Anion Gap 7 mmol/L (4-12); Aspartate Amino Transferase 56 U/L (17-59); Bilirubin,Total 0.5 mg/dL (0.2-1.3); Blood Urea Nitrogen 15 mg/dL (9-20); Calcium 9.3 mg/dL (8.4-10.2); Carbon Dioxide 28 mmol/L (22-30); Chloride 108 mmol/L (98-107); Estimated Glomerular Filt Rate > 60; Glucose 108 mg/dL (65-110); Osmolality Calculated 297 mOsm/kg (285-295); Potassium 4.5 mmol/L (3.4-5.0); Sodium 143 mmol/L (137-145); Total Protein 7.2 g/dL (6.3-8.2)
--- OUTSIDE RECORDS SUMMARY | 2025-01-13 11:02 | XMS_ITS | Clinical Summary ---
Author Organization [address] Address [facility] [place] [address] Care Team Providers Care Biological Science Technician Name Role Phone Taco Christian MD Primary Care Provider + [phone] Ethan [place] MD Unavailable [phone] Allergies Active Allergy Reactions Criticality Noted Date Comments Pravastatin Joint pain Low 11/16/2020 Medications aspirin (ASPIR-81) 81 mg tablet take 1 Tablet by oral route every day 0 0 01/13/20 16 Active Additional Information Patient taking differently:81 mgoral Every morning, Indications: Cerebral Thromboembolism Prevention, Myocardial Reinfarction Prevention, prevention of thrombosis, stroke 11/16/2019, [place] around 2020, Informant: Self, Reported on 08/13/2024 [...] 11/15/2020 Mixed hyperlipidemia Coronary artery disease Hypertension Surgical History Surgery Date Site/Laterality Comments CARDIAC [...] on file Legal Sex Male 2:00 AM IT DATA ARCHITECT Gender Identity Male 07/23/2021 8:09 PM IT DATA ARCHITECT Sexual Orientation Straight 07/23/2021 8: 09 PM IT DATA ARCHITECT Obstetrics History Last Filed Vital Signs Vital [...] Body Mass Index 27.87 07/18/2024 4:45 PM IT DATA ARCHITECT Plan of Treatment Health Maintenance Due Date Last Done Comments DTaP/Tdap/Td Vaccine (1 - Tdap) 1955 Hepatitis B Screening 1962 Zoster Vaccine (1 of 2) 1994 Well Visit 65+ 2009 Pneumococcal vaccine 65+ (2 of 2 - PCV20 or PCV21) 12/10/2015 12/09/2014, 12/26/2012 Depression Screening 11/15/2021 11/15/2020 Influenza Vaccine (#1) 2025 01/22/2020, 2017 Fall Risk Assessment 08/13/2025 08/13/2024 Medical Devices Implanted Type Area Bench Grinder Device Identifier Shelf Expiration Date Model / Serial / Lot Stent Implanted:Qty: 3 Stent Heart Description:2x stents around 2020 and 1x stent in 2017 Insurance UHC MEDICARE ADVANTAGE [facility] MEDICARE Address: [address] [address] [place] [address] MEDICARE AETNA MEDICARE Advance Directives For more information, please contact: [phone] * Full Code (Latest Code Status on File) Date Activated Date Inactivated Comments 11/15/2020 8:53 PM 11/17/2020 8:33 PM Care Teams Biological Science Technician Relationship Specialty Start Date End Date Taco Christian MD [address] [place] [address] PCP - General 10/30/13 Ethan [place] MD [address] [facility]Y, [address] [address] Surgeon Ophthalmology 08/13/24
[2025-01-13 11:21] LABS: Influenza A QL RT-PCR Negative (Negative); Influenza B QL RT-PCR Negative (Negative); RSV RNA, RT-PCR Negative (Negative); SARS-CoV-2 RNA PCR Positive (Negative)
[2025-01-13 12:33] LABS: Strep Group A RT-PCR Not Detected (Negative)
== END 2025-01-13 10:29 | disposition home or self-care (01) ==
LOC: CHSLAB 10:29
PROVIDERS: PCP Internal Medicine; Visit Provider Internal Medicine
DX: R06.2 Wheezing (principal); R05.9 Cough, unspecified; B97.4 Respiratory syncytial virus as the cause of diseases classified elsewhere; J11.1 Influenza due to unidentified influenza virus with other respiratory manifestations; R91.8 Other nonspecific abnormal finding of lung field; U07.1 COVID-19
CPT/HCPCS: 36415; 71046; 80053; 85027; 87637; 87651

== ENCOUNTER 2025-01-29 08:50 | Outpatient (CLI) | payer MEDICARE, SELFPAY ==
--- OUTSIDE RECORDS SUMMARY | 2024-06-30 08:30 | XMS_ITS | Continuity of Care Document ---
Author Organization [employer] [facility] Address [address] [place] [address] Phone Care Team Providers Care Leadite Heater Name Role Phone Tiara OD, Caitlyn Unavailable [...] Providers Copied on Encounter Office/outpa tient Visit, [facility], [address], [place], [place], [address], tel:[phone] [place] Professional Follow up visit (chief complaint) Ptosis, bilateralDry eye syndrome of bilateral lacrimal glands 5 Tiara OD Caitlyn. [address] [place] [address] [address], [place], [place], [address], [place]. tel:[phone] Referring Provider: Caitlyn Melendez, [address] [place] [address] [address], [place], [address] . tel:[phone] Office/outpa tient Visit, [facility], [address], [place], [place], [address], tel:[phone] [place] Professional Follow up visit (chief complaint) Dry eye syndrome of bilateral lacrimal glands Jan- 4 Tiara OD Caitlyn. [address], [place], [place], [address], . tel:[phone] Referring Provider: Caitlyn Melendez, [address] [place] [address] [address], [place], [address] . tel:[phone] Office/outpa tient Visit, [facility], [address], [place], [place], [address], tel:[phone] [place] Professional Complete Exam (chief complaint) Dry eye syndrome of bilateral lacrimal glandsPseudoph tamera Sep-0 4 Tiara OD Caitlyn. [address], [place], [place], [address], [place]. tel:[phone] [facility], [address], [place], [place], [address], [place] tel:[phone] [place] No Information 4 Tiara OD Caitlyn. [address], [place], [place], [address], [place]. tel:[phone] Family History Family Member Type Diagnosis Age At Onset No Information Payers Payer name Insurance type Covered democrat ID Maricel cunningham(s) Jluis CI [id number] Social History Type Description Quantity Date Captured [...]
--- OUTSIDE RECORDS SUMMARY | 2025-01-29 09:14 | XMS_ITS | Clinical Summary ---
Author Organization [address] Address [facility] [place] [address] Care Team Providers Care Manager Primary Care Name Role Phone Taco Christian MD Primary Care Provider [phone] Ethan Wade MD Unavailable [phone] Allergies Active Allergy Reactions Criticality Noted Date Comments Pravastatin Joint pain Low 11/16/2020 Medications aspirin (ASPIR-81) 81 mg tablet take 1 Tablet by oral route every day 0 0 01/13/20 16 Active Additional Information Patient taking differently:81 mgoral Every morning, Indications: Cerebral Thromboembolism Prevention, Myocardial Reinfarction Prevention, prevention of thrombosis, stroke 11/16/2019, [place] around 2020, Informant: Self, Reported on 08/13/2024 [...] on file Legal Sex Male 2:00 AM INDUSTRIAL RELATIONS COMMISSIONER Gender Identity Male 07/23/2021 8:09 PM INDUSTRIAL RELATIONS COMMISSIONER Sexual Orientation Straight 07/23/2021 8: 09 PM INDUSTRIAL RELATIONS COMMISSIONER Obstetrics History Last Filed Vital Signs Vital [...] Body Mass Index 27.87 07/18/2024 4:45 PM INDUSTRIAL RELATIONS COMMISSIONER Plan of Treatment Health Maintenance Due Date Last Done Comments DTaP/Tdap/Td Vaccine (1 - Tdap) 1956 Hepatitis B Screening 1962 Zoster Vaccine (1 of 2) 1994 Well Visit 65+ 2009 Pneumococcal vaccine 65+ (2 of 2 - PCV20 or PCV21) 12/10/2015 12/09/2014, 12/26/2012 Depression Screening 11/15/2021 11/15/2020 Influenza Vaccine (#1) 2025 01/22/2020, 2017 Fall Risk Assessment 08/13/2025 08/13/2024 Medical Devices Implanted Type Area Elevator Conductor Device Identifier Shelf Expiration Date Model / Serial / Lot Stent Implanted:Qty: 3 Stent Heart Description:2x stents around 2020 and 1x stent in 2017 Insurance UHC MEDICARE ADVANTAGE [facility] MEDICARE Address: [address] [address] [place] [address] MEDICARE AETNA MEDICARE Advance Directives For more information, please contact: [phone] * Full Code (Latest Code Status on File) Date Activated Date Inactivated Comments 11/15/2020 8:53 PM 11/17/2020 8:33 PM Care Teams Manager Primary Care Relationship Specialty Start Date End Date Taco Christian MD [address] [place] [address] PCP - General 10/30/13 Ethan Wade MD [address] O[facility]ALMOLOGY, [address] [address] Surgeon Ophthalmology 08/13/24
[2025-01-29 09:49] LABS: Cholesterol 161 mg/dL (0-200); HDL Direct 69 mg/dL; Triglycerides 159 mg/dL (<150)
== END 2025-01-29 08:51 | disposition home or self-care (01) ==
LOC: CHSLAB 08:52
PROVIDERS: PCP Internal Medicine; Visit Provider Internal Medicine
DX: E78.00 Pure hypercholesterolemia, unspecified (principal)
CPT/HCPCS: 36415; 80061

== ENCOUNTER 2025-02-13 13:52 | Outpatient (CLI) | payer MEDICARE, SELFPAY ==
--- OUTSIDE RECORDS SUMMARY | 2024-06-30 08:30 | XMS_ITS | Continuity of Care Document ---
Author Organization [employer] [facility] Address [address] [place] [address] Phone Care Team Providers Care Casino Assistant Manager Name Role Phone Tiara OD, Caitlyn Unavailable [...] 5 MG - Active Procedures Procedure Date No Charge Refraction Office/outpatient Visit, Est Refraction Office/outpatient Visit, Est No Charge Refraction No Charge Optomap Fundus Photos 024 Office/outpatient Visit, New Advance Directives Directive Yes / No Effective Date File Name No Information Encounters Encounter Description Practice Location Reason(s) For Visit Diagnoses Date Provider Providers Copied on Encounter Office/[place]pa [place], [facility], [address], [place], [place], [address], tel:[phone] [place] Professional Follow up visit (chief complaint) Ptosis, bilateralDry eye syndrome of bilateral lacrimal glands 5 Tiara OD Caitlyn. [address] [place] [address] [address], [place], [place], [address], [place]. tel:[phone] Referring Provider: Caitlyn Melendez, [address] [place] [address] [address], [place], [address] . tel:[phone] Office/outpa [place]ient Visit, [facility], [address], [place], [place], [address], tel:[phone] [place] Professional Follow up visit (chief complaint) Dry eye syndrome of bilateral lacrimal glands Jan- 4 Tiara OD Caitlyn. [address], [place], [place], [address], . tel:[phone] Referring Provider: Caitlyn Melendez, [address] [place] [address] [address], [place], [address] . tel:[phone] Office/outpa tient Visit, [facility], [address], [place], [place], [address], tel:[phone] [place] Professional Complete Exam (chief complaint) Dry eye syndrome of bilateral lacrimal glandsPseudoph tamera Sep-0 4 Tiara OD Caitlyn. [address], [place], [place], [address], [place]. tel:[phone] [facility], [address], [place], [place], [address], [place] tel:[phone] SEC [place] No Information 4 Tiara OD Caitlyn. [address], [place], [place], [address], [place]. tel:[phone] Family History Family Member Type Diagnosis Age At Onset No Information Payers Payer name Insurance type Covered green party ID Maricel cunningham(s) Jluis CI [id number] Social History Type Description Quantity Date Captured [...]
--- NOTE | ~2025-02-13 | XR_ITS ---
Examination: XR chest 2V Clinical History: post covid f/u x4 weeks/ pulmonary nodule Comparison: 1 month prior Technique: PA and Lateral Findings: Heart size upper limit of normal. Small focal airspace opacity right midlung laterally persists, probably slightly smaller. No acute bony abnormality. IMPRESSION: 1. Right midlung opacity probably minimally smaller. 2. Recommend repeat x-rays in one month. Reviewed, dictated and finalized at location R.
--- OUTSIDE RECORDS SUMMARY | 2025-02-13 13:55 | XMS_ITS | Clinical Summary ---
Author Organization [address] Address [facility]4 [place] [address] Care Team Providers Care Steel Wool Machine Operator Name Role Phone Taco Christian MD Primary Care Provider + [phone] Ethan Wade MD Unavailable [phone] Allergies Active Allergy Reactions Criticality Noted Date Comments Pravastatin Joint pain Low 11/16/2020 Medications aspirin (ASPIR-81) 81 mg tablet take 1 Tablet by oral route every day 0 0 01/13/20 16 Active Additional Information Patient taking differently:81 mgoral Every morning, Indications: Cerebral Thromboembolism Prevention, Myocardial Reinfarction Prevention, prevention of thrombosis, stroke 11/16/2019, [place] around 2020, Informant: Self, Reported on 08/13/2024 [...] on file Legal Sex Male 2:00 AM CHECKER/STOCKER Gender Identity Male 07/23/2021 8:09 PM CHECKER/STOCKER Sexual Orientation Straight 07/23/2021 8: 09 PM CHECKER/STOCKER Obstetrics History Last Filed Vital Signs Vital [...] Body Mass Index 27.87 07/18/2024 4:45 PM CHECKER/STOCKER Plan of Treatment Health Maintenance Due Date Last Done Comments DTaP/Tdap/Td Vaccine (1 - Tdap) 1955 Hepatitis B Screening 1962 Zoster Vaccine (1 of 2) 1994 Well Visit 65+ 2009 Pneumococcal vaccine 65+ (2 of 2 - PCV20 or PCV21) 12/10/2015 12/09/2014, 12/26/2012 Depression Screening 11/15/2021 11/15/2020 Influenza Vaccine (#1) 2025 01/22/2020, 2017 Fall Risk Assessment 08/13/2025 08/13/2024 Medical Devices Implanted Type Area Forestry Biology Specialist Device Identifier Shelf Expiration Date Model / Serial / Lot Stent Implanted:Qty: 3 Stent Heart Description:2x stents around 2020 and 1x stent in 2017 Insurance UHC MEDICARE ADVANTAGE MEDICARE AETNA MEDICARE Advance Directives For more information, please contact: [phone] * Full Code (Latest Code Status on File) Date Activated Date Inactivated Comments 11/15/2020 8:53 PM 11/17/2020 8:33 PM Care Teams Steel Wool Machine Operator Relationship Specialty Start Date End Date Taco Christian MD [address] [place] [address] PCP - General 10/30/13 Ethan Wade MD [address] O[facility]ALMOLOGY, [address] [address] Surgeon Ophthalmology 08/13/24
[2025-02-13 14:03] LABS: Hematocrit 39.1 % (37.0-46.0); Hemoglobin 13.2 g/dL (12.4-15.3); Mean Corpuscular HGB Conc 33.8 g/dL (32-36); Mean Corpuscular Hemoglobin 31.0 pg (27.0-31.0); Mean Corpuscular Volume 91.8 fL (78.0-102.0); Platelet Count Result 216 K/mm3 (150-420); Red Blood Count 4.26 M/mm3 (4.70-6.10); White Blood Count 5.8 K/mm3 (4.8-10.8)
[2025-02-13 15:09] LABS: Alanine Aminotransferase 31 U/L (6-50); Albumin Level 4.0 g/dL (3.5-5.1); Alkaline Phosphatase 69 U/L (38-126); Amylase 55 U/L (30-110); Anion Gap 9 mmol/L (4-12); Aspartate Amino Transferase 34 U/L (17-59); Bilirubin,Total 0.6 mg/dL (0.2-1.3); Blood Urea Nitrogen 15 mg/dL (9-20); Calcium 9.9 mg/dL (8.4-10.2); Carbon Dioxide 26 mmol/L (22-30); Chloride 108 mmol/L (98-107); Estimated Glomerular Filt Rate > 60; Glucose 118 mg/dL (65-110); Lipase 91 U/L (23-300); Osmolality Calculated 297 mOsm/kg (285-295); Potassium 4.6 mmol/L (3.4-5.0); Sodium 143 mmol/L (137-145); Total Protein 7.1 g/dL (6.3-8.2)
[2025-02-13 15:26] LABS: Free T3 3.60 pg/mL (2.18-3.98)
[2025-02-13 15:27] LABS: Free T4 Free Thyroxine 1.16 ng/dL (0.78-2.19)
[2025-02-13 15:40] LABS: Thyroid Stimulating Hormone 0.666 uIU/mL (0.465-4.680)
== END 2025-02-13 13:53 | disposition home or self-care (01) ==
LOC: CHSLAB 13:54
PROVIDERS: PCP Internal Medicine; Visit Provider Internal Medicine
DX: R10.13 Epigastric pain (principal); I48.0 Paroxysmal atrial fibrillation; R91.1 Solitary pulmonary nodule
CPT/HCPCS: 36415; 71046; 80053; 82150; 83690; 84439; 84443; 84481; 85027

== ENCOUNTER 2025-03-09 13:27 | Outpatient (CLI) | payer MEDICARE, SELFPAY ==
--- OUTSIDE RECORDS SUMMARY | 2024-06-30 08:30 | XMS_ITS | Continuity of Care Document ---
Author Organization [employer] [facility] Address [address] [place] [address] Phone Care Team Providers Care Rubber Grinder Name Role Phone Tiara OD, Caitlyn Unavailable Unavailable Allergies, Adverse Reactions, Alerts Substance Reaction Status Criticality No Known Allergies Active No Inform ation Medications Medication Instructions Dosage Effective Dates (start - stop) Status Comments Miebo (PF) 100 % eye drops instill 1 drop by ophthalmic route 4 times every day into affected eye(s) 1.00 drop - Active chlordiazepoxide 5 mg capsule take 1 capsule by oral route every day 5 MG - Active temazepam 30 mg capsule take 1 capsule b y oral route every day at bedtime as needed 30 MG - Active Flonase Allergy Relief 50 mcg/actuation nasal spray,suspension spray 1 - 2 spray by intranasal route every day in each nostril as needed 50-100 MCG - Active amlodipine 5 mg tablet take 1 tablet by oral route every day 5 MG - Active metoprolol succinate ER 25 mg tablet,extended release 24 hr take 1 tablet by oral route every day 25 MG - Active Eliquis 2.5 mg tablet take 1 tablet by oral route 2 times every day 2.5 MG - Active Procedures Procedure Date No Charge Refraction Office/outpatient Visit, Est Refraction Office/outpatient Visit, Est No Charge Refraction No Charge Optomap Fundus Photos 024 Office/outpatient Visit, New Advance Directives Directive Yes / No Effective Date File Name No Information Encounters Encounter Description Practice Location Reason(s) For Visit Diagnoses Date Provider Providers Copied on Encounter Office/outpa tient Visit, [facility], [address], [place], [place], [address], tel:[phone] [place] Professional Follow up visit (chief complaint) Ptosis, bilateralDry eye syndrome of bilateral lacrimal glands 5 Tiara OD Caitlyn. [address] [place] [address] [address], [place], [place], [address], [place]. tel:[phone] Referring Provider: Caitlyn Melendez, [address] [place] [address] [address], [place], [address] . tel:[phone] Office/outpa tient Visit, [facility], [address], [place], [place], [address], tel:[phone] [place] Professional Follow up visit (chief complaint) Dry eye syndrome of bilateral lacrimal glands Jan- 4 Tiara OD Caitlyn. [address], [place], [place], [address], . tel:[phone] Referring Provider: Caitlyn Melendez, [address] [place] [address] [address], [place], [address] . tel:[phone] Office/outpa tient Visit, [facility], [address], [place], [place], [address], tel:[phone] [place] Professional Complete Exam (chief complaint) Dry eye syndrome of bilateral lacrimal glandsPseudoph tamera Sep-0 4 Tiara OD Caitlyn. [address], [place], [place], [address], [place]. tel:[phone] [facility], [address], [place], [place], [address], [place] tel:[phone] [place] No Information 4 Tiara OD Caitlyn. [address], [place], [place], [address], [place]. tel:[phone] Family History Family Member Type Diagnosis Age At Onset No Information Payers Payer name Insurance type Covered alliance party ID Maricel cunningham(s) Jluis CI [id number] Social History Type Description Quantity Date Captured Comments Alcohol Use Details > 5 glasses weekly 025 Caffeine Use Details 2 cups per day Tobacco Use Status Current non-smoker 25 Smoking Status Never smoker Non-Smoking Tobacco Use Details : No Details Available : No Details Available Sex Male Chief Complaint And Reason For Visit From encounter dated '06/30/2024 13:30'. Follow up visit (chief complaint). Description: The 79 year old patient presents for evaluation of Follow up visit in the right eye and left eye. Pt states that since last visit pt got in touch with [facility] and they believe that the eyelids has been effecting the vision so they are gonna evaluate the pt for that in July. Pt states that [facility] seems about the same since last visit. Reason For Referral Reason For Referral No Information History Of Present Illness Encounter Date Complaint History Of Prese nt Illness Follow up visit The 79 year old patient presents for evaluation of Follow up visit in the right eye and left eye. Pt states that since last visit pt got in touch with [facility] and they believe that the eyelids has been effecting the vision so they are gonna evaluate the pt for that in July. Pt states that [facility] seems about the same since last visit. Follow up visit The 78 year old [...] Date Instruction Additional Infor mabel Impression/Plan Impression/Plan Impression/Plan Assessments Type Assessment Date assessment Ptosis, bilateral assessment Dry eye syndrome of bilateral la crimal glands Patient Care Teams Name Effective Dates (start - stop) Status Members No Information
--- NOTE | ~2025-03-09 | CT_ITS ---
EXAMINATION: CT abdomen pelvis w con DATE: 03/09/2025 14:03 INDICATION: Chronic abdominal pain. TECHNIQUE: Computed tomography (CT) of the abdomen and pelvis was performed with 100 mL Omnipaque 350 intravenous contrast. Automated exposure control and iterative reconstruction technique were employed. The dose-length product was 534.59 mGy-cm. COMPARISON: CT abdomen and pelvis 06/09/2021 FINDINGS: The visualized portions of lung bases demonstrate mild atelectasis. There are airspace opacities in right middle lobe and right upper lobe. No pleural effusion. Cardiomegaly is noted. There are coronary artery calcifications. No pericardial effusion. The liver, gallbladder, spleen, pancreas, adrenal glands, and kidneys are normal. The prostate is mildly enlarged. There is a left inguinal hernia containing fat. There are no dilated loops of bowel. The appendix is not visualized. There are no pathologically enlarged lymph nodes. There is no free intraperitoneal fluid. There is an umbilical hernia containing fat. There is severe lower lumbar spondylosis. There are bridging endplate osteophytes at multiple levels in the thoracic spine, consistent with diffuse idiopathic skeletal hyperostosis (DISH). IMPRESSION: 1. Mild airspace opacities in right middle lobe and partially visualized airspace opacities in right upper lobe, consistent with pneumonia. 2. Umbilical hernia and left inguinal hernia containing fat. Reviewed, dictated and finalized at location E. IMPRESSION: 1. Mild airspace opacities in right middle lobe and partially visualized airspa ce opacities in right upper lobe, consistent with pneumonia. 2. Umbilical hernia and left inguinal hernia containing fat.
--- OUTSIDE RECORDS SUMMARY | 2025-03-09 15:06 | XMS_ITS | Clinical Summary ---
Author Organization [address] Address [facility]4 [place] [address] Care Team Providers Care Security Investigator Name Role Phone Taco Christian MD Primary Care Provider + [phone] Ethan Wade MD Unavailable [phone] Allergies Active Allergy Reactions Criticality Noted Date Comments Pravastatin Joint pain Low 11/16/2020 Medications aspirin (ASPIR-81) 81 mg tablet take 1 Tablet by oral route every day 0 0 01/13/20 16 Active Additional Information Patient taking differently:81 mgoral Every morning, Indications: Cerebral Thromboembolism Prevention, Myocardial Reinfarction Prevention, prevention of thrombosis, stroke 11/16/2019, [place] around 2020, Informant: Self, Reported on 08/13/2024 [...] on file Legal Sex Male 2:00 AM SENIOR SYSTEM OPERATOR Gender Identity Male 07/23/2021 8:09 PM SENIOR SYSTEM OPERATOR Sexual Orientation Straight 07/23/2021 8: 09 PM SENIOR SYSTEM OPERATOR Obstetrics History Last Filed Vital Signs Vital [...] Body Mass Index 27.87 07/18/2024 4:45 PM SENIOR SYSTEM OPERATOR Plan of Treatment Health Maintenance Due Date Last Done Comments DTaP/Tdap/Td Vaccine (1 - Tdap) 1955 Hepatitis B Screening 1962 Zoster Vaccine (1 of 2) 1994 Well Visit 65+ 2009 Pneumococcal vaccine 65+ (2 of 2 - PCV20 or PCV21) 12/10/2015 12/09/2014, 12/26/2012 Depression Screening 11/15/2021 11/15/2020 Influenza Vaccine (#1) 2025 01/22/2020, 2017 Fall Risk Assessment 08/13/2025 08/13/2024 Medical Devices Implanted Type Area Label Press Operator Device Identifier Shelf Expiration Date Model / Serial / Lot Stent Implanted:Qty: 3 Stent Heart Description:2x stents around 2020 and 1x stent in 2017 Insurance UHC MEDICARE ADVANTAGE MEDICARE AETNA MEDICARE Advance Directives For more information, please contact: [phone] * Full Code (Latest Code Status on File) Date Activated Date Inactivated Comments 11/15/2020 8:53 PM 11/17/2020 8:33 PM Care Teams Security Investigator Relationship Specialty Start Date End Date Taco Christian MD [address] [place] [address] PCP - General 10/30/13 Ethan Wade MD [address] O[facility]ALMOLOGY, [address] [address] Surgeon Ophthalmology 08/13/24
== END 2025-03-09 13:28 | disposition home or self-care (01) ==
PROVIDERS: PCP Internal Medicine; Visit Provider Internal Medicine
DX: R10.9 Unspecified abdominal pain (principal); R91.8 Other nonspecific abnormal finding of lung field; K42.9 Umbilical hernia without obstruction or gangrene; K40.90 Unilateral inguinal hernia, without obstruction or gangrene, not specified as recurrent
CPT/HCPCS: 74177; Q9967

== ENCOUNTER 2025-03-25 13:50 | Outpatient (CLI) | payer MEDICARE, SELFPAY ==
--- NOTE | ~2025-03-25 | XR_ITS ---
EXAMINATION: XR chest 2V, 03/25/2025 13:55 DISPATCH LEAD HISTORY: PNEUMONIA, FLU COMPARISON: No comparisons available. Technique: 2 views obtained. Findings: The lungs are clear, no effusion. No pneumothorax. Heart is normal size. Mediastinal and hilar contours are within normal limits. Bony thorax no acute abnormality. Impression: No acute cardiopulmonary abnormality. Reviewed, dictated and finalized at location P. ATCH LEAD Impression: No acute cardiopulmonary abnormality.
--- OUTSIDE RECORDS SUMMARY | 2025-03-25 14:54 | XMS_ITS | Encounter Summary ---
Author Organization [facility] Address [address] [place] [address] Care Team Providers Care Manager Pe Name Role Phone Taco Christian MD Primary Care Provider [phone] Doris Fink MD Unavailable [phone] Milan Meredith MD Unavailable [phone] Katy Saldivar PA-C Unavailable [phone] Florence Bergeron MD Unavailable Encounter Details Date Type Department Care Team (Latest Contact Info) Description 04/30/2024 Spotivate Message [facility] [place] [address] Milan Meredith MD [address] [place] [address] Medication Question Social History Tobacco Use Types Packs/Day Years Used Date Smoking Tobacco: Never Smokeless Tobacco: Never Alcohol Use Standard Drinks/Week Comments Yes 10 (1 standard drink = 0.6 oz pu re alcohol) Social Drinker Sex and Gender Information Value Date Recorded Sex Assigned at Male 07/03/2024 9:40 AM SUPERINTENDENT STEVEDORING Legal Sex Male 9:59 PM CDT Gender [...] Assessment Author Status No 06/09/2021 9:42 PM SUPERINTENDENT STEVEDORING Activ e * RETIRED Are you blind or do you have serious difficulty seeing, even when wearing glasses? Answer Date of Assessment Author Status No 06/09/2021 9:42 PM SUPERINTENDENT STEVEDORING Activ e * Do you have serious difficulty walking or climbing stairs? Answer Date of Assessment Author Status No 06/09/2021 9:42 PM SUPERINTENDENT STEVEDORING Niall Baum R N Active * Do you have difficulty dressing or bathing? Answer Date of Assessment Author Status No 06/09/2021 9:42 PM SUPERINTENDENT STEVEDORING Niall Baum R N Active * Because of a physical, mental, or emotional condition, do you have difficulty doing errands alone such as visiting a doctor's office or shopping? Answer Date of Assessment Author Status No 06/09/2021 9:42 PM SUPERINTENDENT STEVEDORING Niall Baum R N Active documented as of this encounter Mental Status * Because of a physical, mental, or emotional condition, do you have serious difficulty concentrating, remembering, or making decisions? Answer Entry Date Author Status No 06/09/2021 9:42 PM SUPERINTENDENT STEVEDORING Niall Baum R N Active documented in this encounter Plan of Treatment Upcoming Encounters Date Type Department Care Team (Late st Contact Info) Description 04/03/2025 8:15 AM SUPERINTENDENT STEVEDORING Office Visit [facility] [place] [address] [place] [address] Milan Meredith MD [address] [place] [address] 06/08/2025 9:00 AM SUPERINTENDENT STEVEDORING [facility] [address] [place] [address] Florence Bergeron MD [address] [place] [address] 06/17/2025 10:00 AM SUPERINTENDENT STEVEDORING Office Visit [facility] [address] [place] [address] Florence Bergeron MD [address] [place], [place] [address] documented as of this encounter Visit Diagnoses Not on filedocumented in this encounter Care Teams Manager Pe Relationship Specialty Start Date End Date Taco Christian MD [address] [place] [address] PCP - General INTERNAL MEDICINE 07/03/16 Doris Fink MD [address] [place] [address] INTERVENTIONAL CARDIOLOGY 12/24/23 Milan Meredith MD [address] [place] [address] Consulting Physician CLINICAL CARDIAC ELECTROPHYSIOLOGY 03/10/24 Katy Saldivar PA-C [address] [place], [place] [address] Referring Physician PHYSICIAN BLUING OVEN TENDER 03/10/24 Florence Bergeron MD [address] [place], [place] [address] Consulting Physician CARDIOVASCULAR DISEASE 05/01/24 documented as of this encounter
--- OUTSIDE RECORDS SUMMARY | 2025-03-25 14:54 | XMS_ITS | Encounter Summary ---
Author Organization [facility] Address [address] [place] [address] Care Team Providers Care Patient Information Coordinator Name Role Phone Franko Carreon MD Primary Care Provider [phone] Cj Rodriguez MD Unavailable [phone] Taco Christian MD Primary Care Provider [phone] Doris Fink MD Unavailable [phone] Milan Meredith MD Unavailable [phone] Katy Saldivar PA-C Unavailable [phone] Florence Bergeron MD Unavailable Encounter Details Date Type Department Care Team (Late st Contact Info) Description 05/10/2016 Abstract [facility] [address] [place] [address] Cj Rodriguez MD [address] [place] [address] Social History Tobacco Use Types Packs/Day Years Used Date Smoking Tobacco: Never Sex and Gender Information Value Date Recorded Sex Assigned at Male 07/03/2024 9:40 AM OREMAN Legal Sex Male 9:59 PM CDT Gender Identity Not on file Sexual Orientation Not on file 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 on fi le documented as of this encounter Plan of Treatment Upcoming Encounters Date Type Department Care Team (Late st Contact Info) Description 04/03/2025 8:15 AM OREMAN Office Visit [facility] [address] [place] [address] Milan Meredith MD [address] [place] [address] 06/08/2025 9:00 AM OREMAN Appointment [address] [place] [address] Florence Bergeron MD [address] [place] [address] 06/17/2025 10:00 AM OREMAN Office Visit [facility] [place] [address] Florence Bergeron MD [address] [place], [place] [address] documented as of this encounter Visit Diagnoses Not on filedocumented in this encounter Additional Health Concerns Infection Onset Date Last Indicated Resolved Time COVID-19 Rule Out 06/09/2021 06/09/2021 06/09/2021 10:44 PM OREMAN documented as of this encounter Care Teams Patient Information Coordinator Relationship Specialty Start Date End Date Franko Carreon MD [address] [place] [address] PCP - General INTERNAL MEDICINE 05/17/16 07/02/16 Taco Christian MD [address] [place] [address] PCP - General INTERNAL MEDICINE 07/03/16 Cj Rodriguez MD [address] [place] [address] Stamping Ground Pals Specialist CARDIOVASCULAR DISEASE 05/17/16 12/23/23 Doris Fink MD [address] [place] [address] INTERVENTIONAL CARDIOLOGY 12/24/23 Milan Meredith MD [address] [place] [address] Consulting Physician CLINICAL CARDIAC ELECTROPHYSIOLOGY 03/10/24 Katy Saldivar PA-C [address] [place], [place] [address] Referring Physician PHYSICIAN CHROME POLISHER 03/10/24 Florence Bergeron MD [address] [place], [place] [address] Consulting Physician CARDIOVASCULAR DISEASE 05/01/24 documented as of this encounter
--- OUTSIDE RECORDS SUMMARY | 2025-03-25 14:54 | XMS_ITS | Encounter Summary ---
Author Organization [facility] Address [address] [place] [address] Care Team Providers Care Energy Audit Advisor Name Role Phone Taco Christian MD Primary Care Provider [phone] Doris Fink MD Unavailable [phone] Milan Meredith MD Unavailable [phone] Katy Saldivar PA-C Unavailable + [phone] Florence Bergeron MD Unavailable Encounter Details Date Type Department Care Team (Late st Contact Info) Description 01/21/2024 [employer] Message [facility] [address] [place] [address] Doris Fink MD [address] [place] [address] AFIB MONITOR Social History Tobacco Use Types Packs/Day Years Used Date Smoking Tobacco: Never Smokeless Tobacco: Never Alcohol Use Standard Drinks/Week Comments Yes 10 (1 standard drink = 0.6 oz pu re alcohol) Social Drinker Sex and Gender Information Value Date Recorded Sex Assigned at Male 07/03/2024 9:40 AM PRESSURISED CONTAINER FILLER Legal Sex Male 9:59 PM CDT Gender [...] Assessment Author Status No 06/09/2021 9:42 PM PRESSURISED CONTAINER FILLER Activ e * RETIRED Are you blind or do you have serious difficulty seeing, even when wearing glasses? Answer Date of Assessment Author Status No 06/09/2021 9:42 PM PRESSURISED CONTAINER FILLER Activ e * Do you have serious difficulty walking or climbing stairs? Answer Date of Assessment Author Status No 06/09/2021 9:42 PM PRESSURISED CONTAINER FILLER Niall Baum R N Active * Do you have difficulty dressing or bathing? Answer Date of Assessment Author Status No 06/09/2021 9:42 PM PRESSURISED CONTAINER FILLER Niall Baum R N Active * Because of a physical, mental, or emotional condition, do you have difficulty doing errands alone such as visiting a doctor's office or shopping? Answer Date of Assessment Author Status No 06/09/2021 9:42 PM PRESSURISED CONTAINER FILLER Niall Baum R N Active documented as of this encounter Mental Status * Because of a physical, mental, or emotional condition, do you have serious difficulty concentrating, remembering, or making decisions? Answer Entry Date Author Status No 06/09/2021 9:42 PM PRESSURISED CONTAINER FILLER Niall Baum R N Active documented in this encounter Plan of Treatment Upcoming Encounters Date Type Department Care Team (Late st Contact Info) Description 04/03/2025 8:15 AM PRESSURISED CONTAINER FILLER Office Visit [facility] [place] [address] Milan Meredith MD [address] [place] [address] 06/08/2025 9:00 AM PRESSURISED CONTAINER FILLER [facility] [address] [place] [address] Florence Bergeron MD [address] [place], [place] [address] 06/17/2025 10:00 AM PRESSURISED CONTAINER FILLER Office Visit [facility] [address] [place] [address] Florence Bergeron MD [address] [place], [place] [phone] documented as of this encounter Visit Diagnoses Not on filedocumented in this encounter Care Teams Energy Audit Advisor Relationship Specialty Start Date End Date Taco Christian MD [address] [place] [address] PCP - General INTERNAL MEDICINE 07/03/16 Doris Fink MD [address] [place] [address] INTERVENTIONAL CARDIOLOGY 12/24/23 Milan Meredith MD [address] [place] [address] Consulting Physician CLINICAL CARDIAC ELECTROPHYSIOLOGY 03/10/24 Katy Saldivar PA-C [address] [place], [place] [address] Referring Physician PHYSICIAN CONTROLS DESIGNER 03/10/24 Florence Bergeron MD [address] [place] [address] Consulting Physician CARDIOVASCULAR DISEASE 05/01/24 documented as of this encounter
--- OUTSIDE RECORDS SUMMARY | 2025-03-25 14:54 | XMS_ITS | Encounter Summary ---
Author Organization [facility] Address [address] [place] [address] Care Team Providers Care Vacuum Evaporation Operator Name Role Phone Cj Rodriguez MD Unavailable [phone] Taco Christian MD Primary Care Provider [phone] Doris Fnik MD Unavailable [phone] Milan Meredith MD Unavailable [phone] Katy Saldivar PA-C Unavailable [phone] Florence Bergeron MD Unavailable Encounter Details Date Type Department Care Team (Late st Contact Info) Description 08/22/2021 Abstract [facility] [address] [place] [address] Cj Rodriguez MD [address] [place] [address] Social History Tobacco Use Types Packs/Day Years Used Date Smoking Tobacco: Never Smokeless Tobacco: Never Alcohol Use Standard Drinks/Week Comments Yes 0 (1 standard drink = 0.6 oz pur e alcohol) very minimal Sex and Gender Information Value Date Recorded Sex Assigned at Male 07/03/2024 9:40 AM AUTOMOTIVE WINDOW TINTER Legal Sex Male 9:59 PM CDT Gender [...] Assessment Author Status No 06/09/2021 9:42 PM AUTOMOTIVE WINDOW TINTER Activ e * RETIRED Are you blind or do you have serious difficulty seeing, even when wearing glasses? Answer Date of Assessment Author Status No 06/09/2021 9:42 PM AUTOMOTIVE WINDOW TINTER Activ e * Do you have serious difficulty walking or climbing stairs? Answer Date of Assessment Author Status No 06/09/2021 9:42 PM AUTOMOTIVE WINDOW TINTER Niall Baum R N Active * Do you have difficulty dressing or bathing? Answer Date of Assessment Author Status No 06/09/2021 9:42 PM AUTOMOTIVE WINDOW TINTER Niall Baum R N Active * Because of a physical, mental, or emotional condition, do you have difficulty doing errands alone such as visiting a doctor's office or shopping? Answer Date of Assessment Author Status No 06/09/2021 9:42 PM AUTOMOTIVE WINDOW TINTER Niall Baum R N Active documented as of this encounter Mental Status * Because of a physical, mental, or emotional condition, do you have serious difficulty concentrating, remembering, or making decisions? Answer Entry Date Author Status No 06/09/2021 9:42 PM AUTOMOTIVE WINDOW TINTER Niall Baum R N Active documented in this encounter Plan of Treatment Upcoming Encounters Date Type Department Care Team (Late st Contact Info) Description 04/03/2025 8:15 AM AUTOMOTIVE WINDOW TINTER Office Visit [facility] [place] [address] [address] Milan Meredith MD [address] [place] [address] 06/08/2025 9:00 AM AUTOMOTIVE WINDOW TINTER [facility] [address] [place] [address] Florence Bergeron MD [address] [place] [address] 06/17/2025 10:00 AM AUTOMOTIVE WINDOW TINTER Office Visit [facility] [address] [place] [address] Florence Bergeron MD [address] [place] [address] documented as of this encounter Procedures Procedure [...] LAB-OUTSIDE/ABSTRACTED Final Result * HEMOGLOBIN, GLYCOSYLATED (10/08/2020) HGB A1C 5.6 % 10/08/2020 us Doc [facility]AT[facility] Final Result * LIPID PANEL (10/08/2020) CHOLESTEROL 177 HDL 50 TRIGLYCERIDES 103 LDL (CALCULATED) 106 10/08/2020 us Doc [facility] Final Result * CMP (ABSTRACTED LAB) (10/08/2020) SODIUM S/P/B 141 136 - 145 POTASSIUM [...] on filedocumented in this encounter Care Teams Vacuum Evaporation Operator Relationship Specialty Start Date End Date Taco Christian MD [address] [place] [address] PCP - General INTERNAL MEDICINE 07/03/16 Cj Rodriguez MD [address] [place] [phone] Show Low Coil Strapper CARDIOVASCULAR DISEASE 05/17/16 12/23/23 Doris Fink MD [address] [place] [phone] INTERVENTIONAL CARDIOLOGY 12/24/23 Milan Meredith MD [address] [place] [address] Consulting Physician CLINICAL CARDIAC ELECTROPHYSIOLOGY 03/10/24 Katy Saldivar PA-C [address] [place] [address] Referring Physician PHYSICIAN OUTPATIENT CODING SPECIALIST 03/10/24 Florence Bergeron MD [address] [place] [address] Consulting Physician CARDIOVASCULAR DISEASE 05/01/24 documented as of this encounter
--- OUTSIDE RECORDS SUMMARY | 2025-03-25 14:54 | XMS_ITS | Clinical Summary ---
Author Organization [address] Address [facility] [place] [address] Care Team Providers Care Account Development Specialist Name Role Phone Taco Christian MD Primary Care Provider + [phone] Ethan Wade MD Unavailable [phone] Allergies Active Allergy Reactions Criticality Noted Date Comments Pravastatin Joint pain Low 11/16/2020 Medications aspirin (ASPIR-81) 81 mg tablet take 1 Tablet by oral route every day 0 0 01/13/20 16 Active Additional Information Patient taking differently:81 mgoral Every morning, Indications: Cerebral Thromboembolism Prevention, Myocardial Reinfarction Prevention, prevention of thrombosis, stroke 11/16/2019, IN around 2020, Informant: Self, Reported on 08/13/2024 [...] on file Legal Sex Male 2:00 AM RUBBER GOODS REPAIRER Gender Identity Male 07/23/2021 8:09 PM RUBBER GOODS REPAIRER Sexual Orientation Straight 07/23/2021 8: 09 PM RUBBER GOODS REPAIRER Last Filed Vital Signs Vital Sign Reading [...] Body Mass Index 27.87 07/18/2024 4:45 PM RUBBER GOODS REPAIRER Plan of Treatment Health Maintenance Due Date Last Done Comments DTaP/Tdap/Td Vaccine (1 - Tdap) 1955 Hepatitis B Screening 1962 Zoster Vaccine (1 of 2) 1994 Well Visit 65+ 2009 Pneumococcal vaccine 65+ (2 of 2 - PPSV23, PCV20, or PCV21) 02/03/2015 12/09/2014, 12/26/2012 Depression Screening 11/15/2021 11/15/2020 Influenza Vaccine (#1) 2025 01/22/2020, 2017 Fall Risk Assessment 08/13/2025 08/13/2024 Medical Devices Implanted Type Area Childcare Center Director Device Identifier Shelf Expiration Date Model / Serial / Lot Stent Implanted:Qty: 3 Stent Heart Description:2x stents around 2020 and 1x stent in 2017 Insurance UHC MEDICARE ADVANTAGE [facility] Address: [address] [address] [place] [address] MEDICARE AET[employer] MEDICARE Advance Directives For more information, please contact: [phone] * Full Code (Latest Code Status on File) Date Activated Date Inactivated Comments 11/15/2020 8:53 PM 11/17/2020 8:33 PM Care Teams Account Development Specialist Relationship Specialty Start Date End Date Taco Christian MD [address] [place] [address] PCP - General 10/30/13 Ethan Wade MD [address] DEPT OPHTHALMOLOGY, [address] [address] Surgeon Ophthalmology 08/13/24
--- OUTSIDE RECORDS SUMMARY | 2025-03-25 14:54 | XMS_ITS | Encounter Summary ---
Author Organization [facility] Address [address] [place] [address] Care Team Providers Care Capability Lead Name Role Phone Taco Christian MD Primary Care Provider [phone] Milan Meredith MD Unavailable [phone] Katy Saldivar PA-C Unavailable [phone] Florence Bergeron MD Unavailable Encounter Details Date Type Department Care Team (Latest Contact Info) Description 06/23/2024 [employer] Message [facility] [place] [address] Milan Meredith MD [address] [place] [address] Upcoming Cardioversion Social History Tobacco Use Types Packs/Day Years Used Date Smoking Tobacco: Never Smokeless Tobacco: Never Alcohol Use Standard Drinks/Week Comments Yes 10 (1 standard drink = 0.6 oz pu re alcohol) Social Drinker Sex and Gender Information Value Date Recorded Sex Assigned at Male 07/03/2024 9:40 AM AVIATION ENGINEER Legal Sex Male 9:59 PM CDT Gender [...] Assessment Author Status No 06/09/2021 9:42 PM AVIATION ENGINEER Activ e * RETIRED Are you blind or do you have serious difficulty seeing, even when wearing glasses? Answer Date of Assessment Author Status No 06/09/2021 9:42 PM AVIATION ENGINEER Activ e * Do you have serious difficulty walking or climbing stairs? Answer Date of Assessment Author Status No 06/09/2021 9:42 PM AVIATION ENGINEER Niall Baum R N Active * Do you have difficulty dressing or bathing? Answer Date of Assessment Author Status No 06/09/2021 9:42 PM AVIATION ENGINEER Niall Baum R N Active * Because of a physical, mental, or emotional condition, do you have difficulty doing errands alone such as visiting a doctor's office or shopping? Answer Date of Assessment Author Status No 06/09/2021 9:42 PM AVIATION ENGINEER Niall Baum R N Active documented as of this encounter Mental Status * Because of a physical, mental, or emotional condition, do you have serious difficulty concentrating, remembering, or making decisions? Answer Entry Date Author Status No 06/09/2021 9:42 PM AVIATION ENGINEER Niall Baum R N Active documented in this encounter Plan of Treatment Upcoming Encounters Date Type Department Care Team (Late st Contact Info) Description 04/03/2025 8:15 AM AVIATION ENGINEER Office Visit [facility] [address] [place] [address] Milan Meredith MD [address] [place] [address] 06/08/2025 9:00 AM AVIATION ENGINEER Appointment [facility] [address] [place] [address] Florence Bergeron MD [address] [place], [place] [address] 06/17/2025 10:00 AM AVIATION ENGINEER Office Visit [facility] [address] [place] [address] Florence Bergeron MD [address] [place] [address] documented as of this encounter Visit Diagnoses Not on filedocumented in this encounter Care Teams Capability Lead Relationship Specialty Start Date End Date Taco Christian MD [address] [place] [phone] PCP - General INTERNAL MEDICINE 07/03/16 Milan Meredith MD [address] [place] [address] Consulting Physician CLINICAL CARDIAC ELECTROPHYSIOLOGY 03/10/24 Katy Saldivar PA-C [address] [place], [place] [address] Referring Physician PHYSICIAN MANAGER ENGLISH 03/10/24 Florence Bergeron MD [address] [place], [place] [address] Consulting Physician CARDIOVASCULAR DISEASE 05/01/24 documented as of this encounter
--- OUTSIDE RECORDS SUMMARY | 2025-03-25 14:54 | XMS_ITS | Encounter Summary ---
Author Organization [facility] Address [address] [place] [address] Care Team Providers Care Food Safety Coordinator Name Role Phone Cj Rodriguez MD Unavailable [phone] Taco Christian MD Primary Care Provider [phone] Doris Fink MD Unavailable [phone] Milan Meredith MD Unavailable [phone] Katy Saldivar PA-C Unavailable [phone] Florence Bergeron MD Unavailable Encounter Details Date Type Department Care Team (Late st Contact Info) Description 06/13/2021 Hospital Follow-up Call [facility] [address] [place] [address] Allyson Goldberg, RN Social History Tobacco Use Types Packs/Day Years Used Date Smoking Tobacco: Never Smokeless Tobacco: Never Alcohol Use Standard Drinks/Week Comments Yes 0 (1 standard drink = 0.6 oz pur e alcohol) very minimal Sex and Gender Information Value Date Recorded Sex Assigned at Male 07/03/2024 9:40 AM APPLICATION COUNSELOR Legal Sex Male 9:59 PM CDT Gender [...] COVID-19? No / Unsure 06/09/2021 9:56 PM APPLICATION COUNSELOR documented as of this encounter Functional Status * RETIRED Are you deaf or do you have serious difficulty hearing Answer Date of Assessment Author Status No 06/09/2021 9:42 PM APPLICATION COUNSELOR Activ e * RETIRED Are you blind or do you have serious difficulty seeing, even when wearing glasses? Answer Date of Assessment Author Status No 06/09/2021 9:42 PM APPLICATION COUNSELOR Activ e * Do you have serious difficulty walking or climbing stairs? Answer Date of Assessment Author Status No 06/09/2021 9:42 PM APPLICATION COUNSELOR Niall Baum R N Active * Do you have difficulty dressing or bathing? Answer Date of Assessment Author Status No 06/09/2021 9:42 PM APPLICATION COUNSELOR Niall Baum R N Active * Because of a physical, mental, or emotional condition, do you have difficulty doing errands alone such as visiting a doctor's office or shopping? Answer Date of Assessment Author Status No 06/09/2021 9:42 PM APPLICATION COUNSELOR Niall Baum R N Active documented as of this encounter Mental Status * Because of a physical, mental, or emotional condition, do you have serious difficulty concentrating, remembering, or making decisions? Answer Entry Date Author Status No 06/09/2021 9:42 PM APPLICATION COUNSELOR Niall Baum R N Active documented in this encounter Plan of Treatment Upcoming Encounters Date Type Department Care Team (Late st Contact Info) Description 04/03/2025 8:15 AM APPLICATION COUNSELOR Office Visit [facility] [place] [address] Milan Meredith MD [address] [place] [address] 06/08/2025 9:00 AM APPLICATION COUNSELOR Appointment [facility] [address] [place] [address] Florence Bergeron MD [address] [place] [address] 06/17/2025 10:00 AM APPLICATION COUNSELOR Office Visit [facility] [address] Florence Bergeron MD [address] [place] [address] documented as of this encounter Visit Diagnoses Not on filedocumented in this encounter Care Teams Food Safety Coordinator Relationship Specialty Start Date End Date Taco Christian MD [address] [place] [address] PCP - General INTERNAL MEDICINE 07/03/16 Cj Rodriguez MD [address] [place] [phone] [place] Utility Worker [employer] CARDIOVASCULAR DISEASE 05/17/16 12/23/23 Doris Fink MD [address] [place] [address] INTERVENTIONAL CARDIOLOGY 12/24/23 Milan Meredith MD [address] [place] [address] Consulting Physician CLINICAL CARDIAC ELECTROPHYSIOLOGY 03/10/24 Katy Saldivar PA-C [address] [place] [address] Referring Physician PHYSICIAN CARD SELLER 03/10/24 Florence Bergeron MD [address] [place] [address] Consulting Physician CARDIOVASCULAR DISEASE 05/01/24 documented as of this encounter
--- OUTSIDE RECORDS SUMMARY | 2025-03-25 14:54 | XMS_ITS | Encounter Summary ---
Author Organization [facility] Address [address] [place] [address] Care Team Providers Care Dough Maker Name Role Phone Taco Christian MD Primary Care Provider [phone] Milan Meredith MD Unavailable [phone] Katy Saldivar PA-C Unavailable [phone] Florence Bergeron MD Unavailable Reason for Visit * Reason Onset Date Comments Reschedule 03/25/2025 Encounter Details Date Type Department Care Team (Late st Contact Info) Description 03/25/2025 Telephone [facility] [address] [place] [address] Milan Meredith MD [address] [place] [address] Reschedule Social History Tobacco Use Types Packs/Day Years Used Date Smoking Tobacco: Never Smokeless Tobacco: Never Alcohol Use Standard Drinks/Week Comments Yes 10 (1 standard drink = 0.6 oz pu re alcohol) Social Drinker Sex and Gender Information Value Date Recorded Sex Assigned at Male 07/03/2024 9:40 AM BRICK KILN WORKER Legal Sex Male 9:59 PM CDT Gender [...] Assessment Author Status No 06/09/2021 9:42 PM BRICK KILN WORKER Activ e * RETIRED Are you blind or do you have serious difficulty seeing, even when wearing glasses? Answer Date of Assessment Author Status No 06/09/2021 9:42 PM BRICK KILN WORKER Activ e * Do you have serious difficulty walking or climbing stairs? Answer Date of Assessment Author Status No 06/09/2021 9:42 PM BRICK KILN WORKER Niall Baum R N Active * Do you have difficulty dressing or bathing? Answer Date of Assessment Author Status No 06/09/2021 9:42 PM BRICK KILN WORKER Niall Baum R N Active * Because of a physical, mental, or emotional condition, do you have difficulty doing errands alone such as visiting a doctor's office or shopping? Answer Date of Assessment Author Status No 06/09/2021 9:42 PM BRICK KILN WORKER Niall Baum R N Active documented as of this encounter Mental Status * Because of a physical, mental, or emotional condition, do you have serious difficulty concentrating, remembering, or making decisions? Answer Entry Date Author Status No 06/09/2021 9:42 PM BRICK KILN WORKER Niall Baum R N Active documented in this encounter Progress Notes * Elke Hess - 03/25/2025 1:48 PM CST I called and spoke with patient to r/s appt on 04/08/25. Appt r/s to 04/03/25. K KILN WORKER documented in this encounter Plan of Treatment Upcoming Encounters Date Type Department Care Team (Late st Contact Info) Description 04/03/2025 8:15 AM BRICK KILN WORKER [facility] [place] [address] Milan Meredith MD [address] [place], [place] [phone] 06/08/2025 9:00 AM BRICK KILN WORKER Appointment [facility] [place] [address] Florence Bergeron MD [address] [place], [place] [phone] 06/17/2025 10:00 AM BRICK KILN WORKER Office Visit [facility] [place] [address] Florence Bergeron MD [address] [place] [address] documented as of this encounter Visit Diagnoses Not on filedocumented in this encounter Care Teams Dough Maker Relationship Specialty Start Date End Date Taco Christian MD [address] [place] [address] PCP - General INTERNAL MEDICINE 07/03/16 Milan Meredith MD [address] [place] [address] Consulting Physician CLINICAL CARDIAC ELECTROPHYSIOLOGY 03/10/24 Katy Saldivar PA-C [address] [place] [address] Referring Physician PHYSICIAN ASSISTANT COMMISSIONER 03/10/24 Florence Bergeron MD [address] [place] [address] Consulting Physician CARDIOVASCULAR DISEASE 05/01/24 documented as of this encounter
--- OUTSIDE RECORDS SUMMARY | 2025-03-25 14:54 | XMS_ITS | Encounter Summary ---
Author Organization [facility] Address [address] [place] [address] Care Team Providers Care Dining Car Conductor Name Role Phone Cj Rodriguez MD Unavailable [phone] Taco Christian MD Primary Care Provider [phone] Doris Fink MD Unavailable [phone] Milan Meredith MD Unavailable [phone] Katy Saldivar PA-C Unavailable [phone] Florence Bergeron MD Unavailable Encounter Details Date Type Department Care Team (Late st Contact Info) Description 07/13/2022 Abstract [facility] [address] [place] [address] Cj Rodriguez MD [address] [place] [address] Social History Tobacco Use Types Packs/Day Years Used Date Smoking Tobacco: Never Smokeless Tobacco: Never Alcohol Use Standard Drinks/Week Comments Yes 0 (1 standard drink = 0.6 oz pur e alcohol) 4-6 per week Sex and Gender Information Value Date Recorded Sex Assigned at Male 07/03/2024 9:40 AM BANQUET DIRECTOR Legal Sex Male 9:59 PM CDT Gender [...] Coronavirus/COVID-19? No / Unsure 07/12/2022 1:17 PM BANQUET DIRECTOR documented as of this encounter Functional Status * RETIRED Are you deaf or do you have serious difficulty hearing Answer Date of Assessment Author Status No 06/09/2021 9:42 PM BANQUET DIRECTOR Activ e * RETIRED Are you blind or do you have serious difficulty seeing, even when wearing glasses? Answer Date of Assessment Author Status No 06/09/2021 9:42 PM BANQUET DIRECTOR Activ e * Do you have serious difficulty walking or climbing stairs? Answer Date of Assessment Author Status No 06/09/2021 9:42 PM BANQUET DIRECTOR Niall Baum R N Active * Do you have difficulty dressing or bathing? Answer Date of Assessment Author Status No 06/09/2021 9:42 PM BANQUET DIRECTOR Niall Baum R N Active * Because of a physical, mental, or emotional condition, do you have difficulty doing errands alone such as visiting a doctor's office or shopping? Answer Date of Assessment Author Status No 06/09/2021 9:42 PM BANQUET DIRECTOR Niall Baum R N Active documented as of this encounter Mental Status * Because of a physical, mental, or emotional condition, do you have serious difficulty concentrating, remembering, or making decisions? Answer Entry Date Author Status No 06/09/2021 9:42 PM BANQUET DIRECTOR Niall Baum R N Active documented in this encounter Plan of Treatment Upcoming Encounters Date Type Department Care Team (Late st Contact Info) Description 04/03/2025 8:15 AM BANQUET DIRECTOR Office Visit [facility] [address] [place] [address] Milan Meredith MD [address] [place], [place] [address] 06/08/2025 9:00 AM BANQUET DIRECTOR [facility] [place] [address] Florence Bergeron MD [address] [place] [address] 06/17/2025 10:00 AM BANQUET DIRECTOR Office Visit [facility] [place] [address] Florence Bergeron MD [address] [place] [address] documented as of this encounter Procedures Procedure [...] Final Result * T3 FREE (ABSTRACTED) (07/12/2022) Pathologist [facility] FREE T3 3.27 07/12/2022 us Default History Genericprovider LAB-OUTSIDE/ABST RACTED Final Result * THYROXINE, FREE (FT4) (07/12/2022) Pathologist [facility] FREE T4 1.01 0.76 - 1.46 07/12/2022 Default History Genericprovider LABORATORY Final Result * TSH (OUTSIDE LAB) (07/12/2022) Pathologist [facility] TSH 1.12 0.36 - 3.74 07/12/2022 us Default History Genericprovider LAB-OUTSIDE/ABST RACTED Final Result * LIPID PANEL (07/12/2022) Pathologist [facility] CHOLESTEROL 116 0 - 200 HDL 62 40 - 60 TRIGLYCERIDES 57 0 - 150 LDL (CALCULATED) 43 <130 07/12/2022 us Default History Genericprovider LABORATORY Final Result * PRO-BRAIN NATRIURETIC PEPTIDE (07/12/2022) Pathologist [facility] PRO-BRAIN NATRIURETIC PEPTIDE 87 0 - 450 07/12/2022 Default History Genericprovider LABORATORY Final Result * CMP (ABSTRACTED LAB) (07/12/2022) Pathologist [facility] SODIUM S/P/B 145 136 - 145 POTASSIUM [...] on filedocumented in this encounter Care Teams Dining Car Conductor Relationship Specialty Start Date End Date Taco Christian MD [address] [place] [address] [phone] PCP - General INTERNAL MEDICINE 07/03/16 Cj Rodriguez MD [address] [place] [phone] [employer] Citizenship Teacher CARDIOVASCULAR DISEASE 05/17/16 12/23/23 Doris Fink MD [address] [place] [phone] INTERVENTIONAL CARDIOLOGY 12/24/23 Milan Meredith MD [address] [place] [phone] Consulting Physician CLINICAL CARDIAC ELECTROPHYSIOLOGY 03/10/24 Katy Saldivar PA-C [address] [place] [address] Referring Physician PHYSICIAN BEAN SORTER 03/10/24 Florence Bergeron MD [address] [place] [address] Consulting Physician CARDIOVASCULAR DISEASE 05/01/24 documented as of this encounter
--- OUTSIDE RECORDS SUMMARY | 2025-03-25 14:54 | XMS_ITS | Clinical Summary ---
Author Organization [facility] Address [address] [place] [address] Care Team Providers Care Nursing Assoc Name Role Phone Taco Christian MD Primary Care Provider [phone] Milan Meredith MD Unavailable [phone] Katy Saldivar PA-C Unavailable [phone] Florence Bergeron MD Unavailable Allergies Active Allergy [...] Patient taking differently:0.25 mg OralPRN, Reported on 12/05/2024 metoprolol succinate ER (TOPROL-XL) 25 MG 24 hr tablet TAKE 1 TABLET (25 MG TOTAL) BY MOUTH DAILY. 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 on fi le Last Filed Vital Signs Vital Sign Reading Time Taken Comments Blood Pressure 132/57 12/05/2024 10:20 AM CDT Pulse 75 12/05/2024 10:20 AM CDT Temperature 36.7 C (98.1 F) 07/03/2024 10:14 AM RIGGING LOFT MECHANIC Respiratory Rate 18 12/05/2024 10:20 AM CDT Oxygen Saturation 100% 12/05/2024 10:20 AM CDT Inhaled Oxygen Concentration - - Weight 90.9 kg (200 lb 6.4 oz) 12/05/2024 10:20 AM CDT Height 177.8 cm (5' 10) 12/05/2024 10:20 AM CDT Body Mass Index 28.75 12/05/2024 10:20 AM CDT Plan of Treatment Upcoming Encounters Date Type Department Care Team (Late st Contact Info) Description 04/03/2025 8:15 AM RIGGING LOFT MECHANIC Office Visit [facility] [address] [place] [address] Milan Meredith MD [address] [place] [address] 06/08/2025 9:00 AM RIGGING LOFT MECHANIC [facility]ointment [facility] [place] [address] lForence Bergeron MD [address] [place] [address] 06/17/2025 10:00 AM RIGGING LOFT MECHANIC Office Visit [facility] [address] [address] Florence Bergeron MD [address] [place] [address] Health Maintenance Due Date Last Done Comments DTaP, Tdap and Td Vaccines ( 1 - Tdap) 1963 Zoster Vaccines (1 of 2) 1994 AAA SCREENING 2009 Annual Medicare Wellness Visit 2009 RSV Immunization or 60+ Years (1 - 1-dose 75+ series) 2019 COVID-19 Vaccine (4 - 2024-2 6 season) 2025 04/05/2021, 07/23/2020, 07/02/2020 Influenza Adult (#1) 2025 05/29/2021, 01/22/2020, 03/09/2018 Pneumococcal Vaccine: 50+ Years Completed 05/29/2021, 12/09/2014, 12/26/2012 Hepatitis A Vaccines Aged Out No long er eligible based on patient's age to complete this topic Meningococcal B Vaccine Aged Out No l onger eligible based on patient's age to complete this topic Meningococcal Vaccine Aged Out No shankar audrey eligible based on patient's age to complete this topic RSV Immunizations Under 20 Months Aged Out No longer eligible b ased on patient's age to complete this topic Medical Devices Implanted Type Area Wind Turbine Technician Device Identifier Shelf Expiration Date Model / Serial / Lot Cv Synergy Se Mid Rca Stent-06/10/19 Implanted:Qty : 1 on 06/10/2021 by Vince Hurtado MD Stent Coronary [employer] 10/26/2022 [id number] / / [id number] Cv Synergy Se Proc Rca Stent-06/10/19 Implanted:Qty : 1 on 06/10/2021 by Vince Hurtado MD Stent Coronary [employer] 02/09/2023 [id number] / / [id number] Insurance [employer] MEDICARE Advance Directives * Full Code (Latest Code Status on File) Date Activated Date Inactivated Comments 06/10/2021 9:21 PM 06/11/2021 1:22 PM * Full Code Date Activated Date Inactivated Comments 06/09/2021 10:00 PM 06/10/2021 9:21 PM Care Teams Nursing Assoc Relationship Specialty Start Date End Date Taco Christian MD [address] [place] [address] PCP - General INTERNAL MEDICINE 07/03/16 Milan Meredith MD [address] [place] [address] Consulting Physician CLINICAL CARDIAC ELECTROPHYSIOLOGY 03/10/24 Katy Saldivar PA-C [address] [place] [address] [phone] Referring Physician PHYSICIAN DUTY MANAGER 03/10/24 Florence Bergeron MD [address] [place] [address] [phone] Consulting Physician CARDIOVASCULAR DISEASE 05/01/24
[2025-03-25 16:26] LABS: Hematocrit 39.2 % (37.0-46.0); Hemoglobin 13.1 g/dL (12.4-15.3); Mean Corpuscular HGB Conc 33.4 g/dL (32-36); Mean Corpuscular Hemoglobin 31.0 pg (27.0-31.0); Mean Corpuscular Volume 92.7 fL (78.0-102.0); Platelet Count Result 187 K/mm3 (150-420); Red Blood Count 4.23 M/mm3 (4.70-6.10); White Blood Count 7.0 K/mm3 (4.8-10.8)
[2025-03-25 16:50] LABS: Strep Group A RT-PCR NOT DETECTED (Negative)
[2025-03-25 17:02] LABS: Influenza A QL RT-PCR Negative (Negative); Influenza B QL RT-PCR Negative (Negative); RSV RNA, RT-PCR Negative (Negative); SARS-CoV-2 RNA PCR Negative (Negative)
== END 2025-03-25 13:51 | disposition home or self-care (01) ==
PROVIDERS: PCP Internal Medicine; Visit Provider Internal Medicine
DX: J06.9 Acute upper respiratory infection, unspecified (principal); J18.9 Pneumonia, unspecified organism
CPT/HCPCS: 36415; 71046; 85027; 87637; 87651